=== PATIENT | female | born 1975 | race Native Hawaiian/Other Pacific Islander ===

== ENCOUNTER 2023-12-06 15:01 | Outpatient (OUT) | payer SELFPAY ==
--- NOTE | 2023-12-06 | XR_ITS ---
The [address] [address] Patient Name: MORENA VILLASENOR MRN: [id number] date: 1975 Sex: F Assigned Patient Location: Current Patient Location: Accession/Order Number: [id number] Exam Date: 12/06/2023 15:03 Report Date: 12/08/2023 06:40 At the request of: KARENA MAY Procedure: XR ankle LT min 3V PROCEDURE: XR ankle LT min 3V HISTORY: LEFT ANKLE PAIN COMPARISON: None. FINDINGS: BONES:Moderate size degenerative enthesophyte at Achilles tendon insertion into the calcaneus. No fracture, dislocation, or joint space irregularity. SOFT TISSUES:No visible soft tissue swelling. EFFUSION:None visible. OTHER: Negative. XR/XR ankle LT min 3V IMPRESSION: 1. No acute bone abnormality or significant degenerative joint disease. Electronically authenticated by: RHEA LILLY Date: 12/08/2023 06:40
== END 2023-12-06 15:02 | disposition home or self-care (01) ==
LOC: EC 15:01
PROVIDERS: Visit Provider Podiatrist Foot & Ankle Surgery
DX: M25.572 Pain in left ankle and joints of left foot (principal)
CPT/HCPCS: 73610

== ENCOUNTER 2023-12-20 08:35 | Outpatient (OUT) | payer BC, SELFPAY ==
--- NOTE | 2023-12-20 08:36 | VEIN_ITS ---
The [address] [address] Patient Name: MORENA VILLASENOR MRN: [id number] date: 1975 Sex: F Assigned Patient Location: Current Patient Location: Accession/Order Number: [id number] Exam Date: 12/20/2023 08:36 Report Date: 12/20/2023 11:00 At the request of: MARINE GOODWIN Procedure: VC SEGMENTAL PRESSURES EXAM: VC SEGMENTAL PRESSURES HISTORY: R09.89 Hyperlipidemia. Smoking. COMPARISON: None. TECHNIQUE: Resting ABIs and segmental limb pressures FINDINGS: Right resting MOSES 1.2. Left resting MOSES 1.24. Toe-brachial indices are normal. No pressure gradients were demonstrated. VEIN/VC SEGMENTAL PRESSURES IMPRESSION: Normal resting ABIs. No pressure gradients. Normal toe-brachial indices. Electronically authenticated by: Naida SHAIKH Date: 12/20/2023 11:00
--- OUTSIDE RECORDS SUMMARY | 2023-12-20 08:39 | XMS_ITS | CCD ---
Author Organization [facility] Care Team Providers Care Flow Floor Attendant Name Role Phone GAYLE ANDERSON Primary Care Unavailable Chago Jaramillo Admitting Unavailable Chago Jaramillo Attending Unavailable Gayle Anderson Primary Care Provider Robert Evans Primary Care Provider [phone] Robert Evans MD Primary Care Provider BROOKE WALLIS Referring Unavailable BACKROBERT Primary Care Unavailable BROOKE WALLIS Referring Unavailable BACKROBERT Primary Care Unavailable BACKROBERT Primary Care Unavailable RENEE KHOURY Referring Unavailabl e RENEE KHOURY Attending Unavailabl e RENEE KHOURY Attending Unavailabl e BACK, BILL Referring Unavailable RENEE KHOURY Referring Unavailabl e RENEE KHOURY Attending Unavailabl e RENEE KHOURY Referring Unavailabl e RENEE KHOURY Attending Unavailabl e Allergies Allergy Classification Reported Allergen(s) Allergy Type Date of Onset Reaction(s) Facility (1 source) Acetaminophen / HYDROcodone; Translations: [Vicodin] Drug Allergy [facility] Repository (1 source) lamoTRIgine; Translations: [LaMICtal] Drug Allergy [facility] Repository (1 source) lurasidone; Translations: [Latuda] Drug Allergy [facility] Repository (5 sources) Acetaminophen / HYDROcodone Drug Allergy 06-28-2019 [place], [place] (5 sources) lamoTRIgine Drug Allergy 01-06-2017 [place], [place] (5 sources) lurasidone Drug Allergy 01-06-2017 [place], [place] (5 sources) Morphine Drug Allergy 01-04-2018 [place], [place] Medications Current Medications Medication Drug Class(es) Dates Sig (Normalized) Sig (Original) acetaminophen 325 mg oral tablet (5 sources) take 2 tablets by mouth every six hours as needed for pain acetaminophen (TYLENOL) 325 MG tablet Take 2 tablets by mouth every 6 hours as needed for Pain 0 Active [id number] actuat albuterol 0.09 mg/actuat metered dose inhaler (5 sources) beta2-Adrenergic Agonist Start: 09-07-2023 take 2 puff(s) by inhalation every four hours as needed for wheezing albuterol sulfate HFA (PROVENTIL HFA) 108 (90 Base) MCG/ACT inhaler Indications: Mild intermittent asthma without complication Inhale 2 puffs into the lungs every 4 hours as needed for Wheezing 1 each 5 09/07/2023 Active Start: 08-01-2018 take 2 puff(s) by in halation every six hours as needed for wheezing albuterol sulfate HFA (PROVENTIL HFA) 108 (90 Base) MCG/ACT inhaler Indications: Mild intermittent asthma without complication Inhale 2 puffs into the lungs every 6 hours as needed for Wheezing 1 Inhaler 3 08/01/2018 Active benzonatate 100 mg oral capsule (1 source) Non-narcotic Antitussive Start: 04-16-2020 End: 04-23-2020 take 1-2 capsules by mouth three times daily as needed for cough benzonatate (TESSALON) 100 MG capsule Take 1-2 capsules by mouth 3 times daily as needed for Cough 60 capsule 0 04/16/2020 04/23/2020 Active ibuprofen 600 mg oral tablet (4 sources) Nonsteroidal Anti-inflammatory Drug Start: 06-28-2019 take 1 tablet by mouth every six hours as needed for pain ibuprofen (IBU) 600 MG tablet Take 1 tablet by mouth every 6 hours as needed for Pain 30 tablet 1 06/28/2019 Active take 3 tablets by mo uth every six hours as needed for pain ibuprofen (ADVIL;MOTRIN) 200 MG tablet T suzanne 600 mg by mouth every 6 hours as needed for Pain 0 Active ketoconazole 20 mg/ml topical cream (1 source) Azole Antifungal Start: 09-07-2023 ketoconazole (NIZORAL) 2 % cream Indications: Intertrigo Apply to the affected area 2 times a day for 2 weeks. 60 g 1 09/07/2023 Active naproxen sodium 220 mg oral tablet (4 sources) Nonsteroidal Anti-inflammatory Drug naproxen sodium (ALEVE) 220 MG tablet Take 550 mg by mouth 2 times daily (with meals) 0 Active omeprazole 40 mg delayed release oral capsule (5 sources) Proton Pump Inhibitor Start: 09-07-2023 take 1 capsule by mouth once daily omeprazole (PRILOSEC) 40 MG delayed release capsule Indications: Gastroesophageal reflux disease without esophagitis Take 1 capsule by mouth daily 30 capsule 5 09/07/2023 Active Start: 12-31-2019 take 1 capsule by mo ut once daily omeprazole (PRILOSEC) 40 MG delayed release capsule Indications: Gastroesophageal reflux disease without esophagitis Take 1 capsule by mouth daily 30 capsule 11 12/31/2019 Active Start: 04-02-2019 take 1 capsule by mo ut once daily omeprazole (PRILOSEC) 40 MG delayed release capsule Take 1 capsule by mouth daily 30 capsule 5 04/02/2019 Active zolpidem tartrate 10 mg oral tablet (2 sources) gamma-Aminobutyric Acid-ergic Agonist Start: 09-07-2023 End: 01-05-2024 take 1 tablet by mouth once daily as needed for sleep zolpidem (AMBIEN) 10 MG tablet Indications: Chronic insomnia Take 1 tablet by mouth nightly as needed for Sleep for up to 120 days. for sleep Max Daily Amount: 10 mg 30 tablet 3 09/07/2023 01/05/2024 Active Start: 03-26-2020 zolpidem (AMBI EN) 10 MG tablet Problems Active Problems Problem Classification Problem Date Documented Date Episodic/Chronic Asthma (2 sources) Mild intermittent asthma; Translations: [Mild intermittent asthma, uncomplicated] Onset: 02-01-2022 02-01-2022 Chronic Esophageal disorders (5 sources) Gastroesophageal reflux disease without esophagitis; Translations: [Gastro-esophageal reflux disease without esophagitis] Onset: 01-04-2018 01-04-2018 Chronic Immunizations and screening for infectious disease (1 source) Contact with and (suspected) exposure to other viral communicable diseases; Translations: [Suspected COVID-19 virus infection] Episodic Miscellaneous mental health disorders (1 source) Chronic insomnia; Translations: [Psychophysiologic insomnia] Onset: 02-01-2022 02-01-2022 Chronic Other connective tissue disease (1 source) Pain in left foot; Translations: [Pain in left foot] Onset: 11-18-2023 Episodic Other connective tissue disease (2 sources) Left achilles tendonitis; Translations: [Achilles tendinitis of left lower extremity] Other screening for suspected conditions (not mental disorders or infectious disease) (6 sources) Breast neoplasm screening status; Translations: [Encounter for screening mammogram for malignant neoplasm of breast] Onset: 09-08-2023 09-08-2023 Episodic Substance-related disorders (3 sources) Smoker; Translations: [Nicotine dependence, unspecified, uncomplicated] Onset: 12-31-2019 12-31-2019 Chronic Unclassified (2 sources) Patient encounter status; Translations: [Encounter for screening for HIV] Past or Other Problems Problem Classification Problem Date Documented Da te Episodic/Chronic Heart valve disorders (1 source) Systolic murmur; Translations: [Cardiac murmur, unspecified] Onset: 07-21-2021 07-21-2021 Episodic Results Test Name Value Interpretation Reference Range Facil ity MRI ANKLE LEFT WO CONTRASTon 11-23-2023 MRI ANKLE LEFT WO CONTRAST HISTORY: Chronic left ankle pain becoming worse over the past 9 months. Evaluate for possible stress fracture of the calcaneus. MRI ANKLE LEFT WO CONTRAST: 11/18/2023 9:38 AM EDT COMPARISON: Radiographs left foot 06/28/2019 and MRI left ankle 07/26/2019. TECHNIQUE: Multiplanar, multisequence MRI images of the ankle were obtained without contrast. FINDINGS: LIGAMENTS: The anterior talofibular ligament is again not clearly visualized. There is a spur again seen arising from the anteroinferior aspect of the lateral malleolus in this region. The calcaneofibular ligament, posterior talofibular ligament, and distal tibiofibular ligaments appear within normal limits. The deltoid ligament complex appears within normal limits. TENDONS: There is a similar appearance of mild tendinopathy of the Achilles tendon at its insertion on the calcaneus. There is a large enthesophyte again seen at the insertion of the Achilles tendon on the calcaneus. The other tendons of the ankle appear within normal limits. SINUS TARSI AND TARSAL TUNNEL: No space-occupying mass is seen in the tarsal tunnel or the sinus tarsi. BONES AND JOINTS: The bone marrow signal intensity is age appropriate. There appears to be mild cartilage thinning along the anterior aspect of the tibiotalar joint there is a small amount of fluid within a joint recess posterior to the tibiotalar joint and posterior to the flexor hallucis longus tendon. There is a linear 6 mm low signal intensity filling defect in this region corresponding to a linear ossific focus seen in this region on the prior radiographs. The posterior subtalar joint. No unstable osteochondral defect of the tibiotalar joint is seen. There are mild degenerative changes again seen at the articulation of the navicular with the medial cuneiform bone with mild adjacent subchondral bone marrow edema in the medial cuneiform. There also mild degenerative changes again seen at the articulation of the cuboid with the lateral cuneiform bone with mild adjacent subchondral bone marrow edema seen. There are mild degenerative changes again seen of the dorsal aspect of the second tarsometatarsal joint. No bone marrow edema-like signal is seen within the calcaneus or the remainder ankle. PLANTAR FASCIA: There is no abnormal thickening or abnormal signal intensity of the plantar fascia and there is no surrounding soft tissue edema to suggest plantar fasciitis. SOFT TISSUES: No significant soft tissue swelling is seen. IMPRESSION: 1. There is no MRI evidence of a stress reaction or stress fracture of the calcaneus or the remainder of the ankle. 2. There are mild degenerative changes of the tibiotalar joint and there is a linear 6 mm filling defect within fluid within a joint recess posterior to the tibiotalar joint compatible with a chronic loose body displaced into this region. 3. Stable appearance of mild tendinopathy of the Achilles tendon at its insertion on the calcaneus with a large calcaneal enthesophyte again seen in this region. 4. Remote grade 3 sprain of the anterior talofibular ligament. No acute ligament injury is seen. 5. There are mild degenerative changes again seen of the midfoot. Interpreted by: Nik Plaza MD Signed by: iNk Plaza MD 11/23/23 Final result Normal [facility] GEMINI DIGITAL SCREEN HENRY [place] 09-13-2023 [facility] GEMINI DIGITAL SCREEN BILATERAL HISTORY: Screening. TECHNIQUE: Bilateral digital screening mammogram with CAD. Digital breast tomosynthesis imaging. FINDINGS: Two views of each breast show scattered areas of fibroglandular density. BREAST DENSITY CODE: S Scattered No prior for comparison. Suspicious calcifications: None. Suspicious mass: None. (If skin markers were applied, circles represent skin lesions and linear markers represent scars.) IMPRESSION: OVERALL ASSESSMENT: BIRADS: 1 - Negative, no evidence of malignancy. Normal interval followup in 12 months. OVERALL ASSESSMENT- NEGATIVE A letter of notification will be sent to the patient regarding the results. Interpreted by: Adam Stephens Jr., MD Signed by: Adam Stephens Jr., MD 09/13/23 Final result Normal [facility] CBC with Diffon 09-08-2023 Abs. Basophil 0.03 k/uL Normal 0.00-0.20 [facility] Comment on above: Performed By: #### C DP, CP, TSH #### [facility] [address] [place] [address] ( Senior Analytic Consultant: Alfonzo Swanson MD #### LIPR #### [place] [id number] ( Senior Analytic Consultant: Woody Terrell MD Abs.Imm.Granulocyte 0.02 k/uL Normal 0.00-0.30 [facility] Comment on above: Performed By: #### C DP, CP, TSH #### [facility] [address] [place] [phone] ( Senior Analytic Consultant: Alfonzo Swanson MD #### LIPR #### [address] [phone] Senior Analytic Consultant: Woody Terrell MD Abs.Neutrophil (Seg) 4.76 k/uL Normal 2.5-7.0 [facility] Comment on above: Performed By: #### C DP, CP, TSH #### [facility] [address] [place] [phone] ( Senior Analytic Consultant: Alfonzo Swanson MD #### LIPR #### [place] [address] Senior Analytic Consultant: Woody Terrell MD Basophils/100 WBC (Bld) 0 % Normal 0-2 [facility] Comment on above: Performed By: #### C DP, CP, TSH #### [facility] [address] [place] [address] Senior Analytic Consultant: Alfonzo Swanson MD #### LIPR #### [place] [address] [place], [place] [phone] Senior Analytic Consultant: Woody Terrell MD Eosinophils (Bld) [#/Vol] 0.38 10*3/uL Normal 0.00-0.40 [facility] Comment on above: Performed By: #### C DP, CP, TSH #### [facility] [address] [place] [address] Senior Analytic Consultant: Alfonzo Swanson MD #### LIPR #### [address] [phone] Senior Analytic Consultant: Woody Terrell MD Eosinophils/100 WBC (Bld) 5 % Normal 0-5 [facility] Comment on above: Performed By: #### C DP, CP, TSH #### [facility] [address] [place] [address] Senior Analytic Consultant: Alfonzo Swanson MD #### LIPR #### [address] [phone] Senior Analytic Consultant: Woody Terrell MD Erythrocyte distribution width (RBC) [Ratio] 12.8 % Normal 12.1-15.2 [facility] Comment on above: Performed By: #### C DP, CP, TSH #### [facility] [address] [place], [place] [phone] Senior Analytic Consultant: Alfonzo Swanson MD #### LIPR #### [address] [phone] Senior Analytic Consultant: Woody Terrell MD Hematocrit (Bld) [Volume fraction] 44.9 % Normal 36.0-46.0 [facility] Comment on above: Performed By: #### C DP, CP, TSH #### [facility] [address] [place], [place] [phone] Senior Analytic Consultant: Alfonzo Swanson MD #### LIPR #### [place] [address] [place], [place] [phone] Senior Analytic Consultant: Woody Terrell MD Hemoglobin (Bld) [Mass/Vol] 15.8 g/dL Normal 12.0-16.0 [facility] Comment on above: Performed By: #### C DP, CP, TSH #### [facility] [address] [place] [address] Senior Analytic Consultant: Alfonzo Swanson MD #### LIPR #### [place] [address] [place], [place] [phone] Senior Analytic Consultant: Woody Terrell MD Immature granulocytes/100 WBC (Bld) 0 % Normal 0-5 [facility] Comment on above: Performed By: #### C DP, CP, TSH #### [facility] [address] [place] [address] Senior Analytic Consultant: Alfonzo Swanson MD #### LIPR #### [address] [phone] Senior Analytic Consultant: Woody Terrell MD Lymphocytes (Bld) [#/Vol] 2.86 10*3/uL Normal 1.00-4.80 [facility] Comment on above: Performed By: #### C DP, CP, TSH #### [facility] [address] [place] [address] Senior Analytic Consultant: Alfonzo Swanson MD #### LIPR #### [address] [phone] Senior Analytic Consultant: Woody Terrell MD Lymphocytes/100 WBC (Bld) 34 % Normal 15-40 [facility] Comment on above: Performed By: #### C DP, CP, TSH #### [facility] [address] [place] [address] Senior Analytic Consultant: Alfonzo Swanson MD #### LIPR #### [place] [address] [place] [address] Senior Analytic Consultant: Woody Terrell MD MCH (RBC) [Entitic mass] 30.2 pg Normal 26.0-34.0 [facility] Comment on above: Performed By: #### C DP, CP, TSH #### [facility] [address] [place] [address] Senior Analytic Consultant: Alfonzo Swanson MD #### LIPR #### [place] [phone] Senior Analytic Consultant: Woody Terrell MD MCHC (RBC) [Mass/Vol] 35.2 g/dL Normal 31.0-37.0 [facility] Comment on above: Performed By: #### C LYNDSAY CP, TSH #### [facility] [address] [place] [address] Senior Analytic Consultant: Alfonzo Swanson MD #### LIPR #### [place] [phone] Senior Analytic Consultant: Woody Terrell MD MCV (RBC) [Entitic vol] 85.7 fL Normal 80.0-100.0 [facility] Comment on above: Performed By: #### C DP, CP, TSH #### [facility] [address] [place] [address] Senior Analytic Consultant: Alfonzo Swanson MD #### LIPR #### [place] [phone] Senior Analytic Consultant: Woody Terrell MD Monocytes (Bld) [#/Vol] 0.40 10*3/uL Normal 0.00-1.00 [facility] Comment on above: Performed By: #### C DP, CP, TSH #### [facility] [address] [place], [place] [phone] Senior Analytic Consultant: Alfonzo Swanson MD #### LIPR #### [place] [address] [place], [place] [phone] Senior Analytic Consultant: Woody Terrell MD Monocytes/100 WBC (Bld) 5 % Normal 4-8 [facility] Comment on above: Performed By: #### C DP, CP, TSH #### [facility] [address] [place], [place] [phone] Senior Analytic Consultant: Alfonzo Swanson MD #### LIPR #### [address] [phone] Senior Analytic Consultant: Woody Terrell MD Neutrophil (Seg) 56 % Normal 47-75 [facility] Comment on above: Performed By: #### C DP, CP, TSH #### [facility] [address] [place] [phone] Senior Analytic Consultant: Alfonzo Swanson MD #### LIPR #### [address] [phone] Senior Analytic Consultant: Woody Terrell MD Platelet mean volume (Bld) [Entitic vol] 10.7 fL Normal 6.0-12.0 [facility] Comment on above: Performed By: #### C DP, CP, TSH #### [facility] [address] [place], [place] [phone] Senior Analytic Consultant: Alfonzo Swanson MD #### LIPR #### [address] [phone] Senior Analytic Consultant: Woody Terrell MD Platelets (Bld) [#/Vol] 274 10*3/uL Normal 140-450 [facility] Comment on above: Performed By: #### C DP, CP, TSH #### [facility] [address] [place] [phone] Senior Analytic Consultant: Alfonzo Swanson MD #### LIPR #### [place] [address] [place], [place] [phone] Senior Analytic Consultant: Woody Terrell MD RBC (Bld) [#/Vol] 5.24 10*6/uL High 4.00-5.20 [facility] Comment on above: Performed By: #### C DP, CP, TSH #### [facility] [address] [place] [address] Senior Analytic Consultant: Alfonzo Swanson MD #### LIPR #### [address] [phone] Senior Analytic Consultant: Woody Terrell MD WBC (Bld) [#/Vol] 8.5 10*3/uL Normal 3.5-11.0 [facility] Comment on above: Performed By: #### C LYNDSAY CP, TSH #### [facility] [address] [place] [phone] ( Senior Analytic Consultant: Alfonzo Swanson MD #### LIPR #### [place] [address] Senior Analytic Consultant: Woody Terrell MD Comp Metabolic Profon 2023 Albumin [Mass/Vol] 4.2 g/dL Normal 3.5-5.2 [facility] Comment on above: Performed By: #### C DP CP, TSH #### [facility] [address] [place] [address] Senior Analytic Consultant: Alfonzo Swanson MD #### LIPR #### [address] [address] Senior Analytic Consultant: Woody Terrell MD Alkaline Phos 71 U/L Normal 35-104 [facility] Comment on above: Performed By: #### C DP, CP, TSH #### [facility] [address] [place], [place] [phone] Senior Analytic Consultant: Alfonzo Swanson MD #### LIPR #### [facility] [address] [place], [place] [phone] Senior Analytic Consultant: Woody Terrell MD ALT [Catalytic activity/Vol] 27 U/L Normal 5-33 [facility] Comment on above: Performed By: #### C DP, CP, TSH #### [facility] [address] [place], [place] [phone] Senior Analytic Consultant: Alfonzo Swanson MD #### LIPR #### [place] [address] [place], [place] [phone] Senior Analytic Consultant: Woody Terrell MD Anion gap [Moles/Vol] 14 mmol/L Normal 9-17 [facility] Comment on above: Performed By: #### C DP, CP, TSH #### [facility] [address] [place], [place] [phone] Senior Analytic Consultant: Alfonzo Swanson MD #### LIPR #### [address] [phone] Senior Analytic Consultant: Woody Terrell MD AST [Catalytic activity/Vol] 21 U/L Normal <32 [facility] Comment on above: Performed By: #### C DP, CP, TSH #### [facility] [address] [place], [place] [phone] Senior Analytic Consultant: Alfonzo Swanson MD #### LIPR #### [facility] [address] [place] [address] [phone] Senior Analytic Consultant: Woody Terrell MD Bilirubin [Mass/Vol] 0.3 mg/dL Normal 0.3-1.2 [facility] Comment on above: Performed By: #### C DP, CP, TSH #### [facility] [address] [place], [place] [phone] Senior Analytic Consultant: Alfonzo Swanson MD #### LIPR #### [facility] [address] [place] [address] Senior Analytic Consultant: Woody Terrell MD BUN/CRE Ratio 14 Normal 9-20 [facility] Comment on above: Performed By: #### C DP, CP, TSH #### [facility] [address] [place] [address] Senior Analytic Consultant: Alfonzo Swanson MD #### LIPR #### [facility] [address] [place] [phone] Senior Analytic Consultant: Woody Terrell MD Calcium [Mass/Vol] 9.1 mg/dL Normal 8.6-10.4 [facility] Comment on above: Performed By: #### C DP, CP, TSH #### [facility] [address] [place] [address] Senior Analytic Consultant: Alfonzo Swanson MD #### LIPR #### [facility] [address] [place] [phone] Senior Analytic Consultant: Woody Terrell MD Chloride [Moles/Vol] 103 mmol/L Normal 98-107 [facility] Comment on above: Performed By: #### C DP, CP, TSH #### [facility] [address] [place] [address] Senior Analytic Consultant: Alfonzo Swanson MD #### LIPR #### [facility] [address] [place] [address] Senior Analytic Consultant: Woody Terrell MD CO2 [Moles/Vol] 20 mmol/L Normal 20-31 [facility] Comment on above: Performed By: #### C DP, CP, TSH #### [facility] [address] [place] [address] Senior Analytic Consultant: Alfonzo Swanson MD #### LIPR #### [facility] [address] [place] [address] Senior Analytic Consultant: Woody Terrell MD Creatinine [Mass/Vol] 0.8 mg/dL Normal 0.5-0.9 [facility] Comment on above: Performed By: #### C TEJAL UMANA, TSH #### [facility] [address] [place], [place] [phone] Senior Analytic Consultant: Alfonzo Swanson MD #### LIPR #### [place] [address] [place], [place] [phone] Senior Analytic Consultant: Woody Terrell MD GFR/1.73 sq M.predicted among non-blacks MDRD (S/P/Bld) [Vol rate/Area] mL/min/{1.73_m2} Normal >60 [facility] Comment on above: Result Comment: These results are not intended for use in patients <18 years of age. eGFR results are calculated without a race factor using the 2020 CKD-EPI equation. Careful clinical correlation is recommended, particularly when comparing to results calculated using previous equations. The CKD-EPI equation is less accurate in patients with extremes of muscle mass, extra-renal metabolism of creatine, excessive creatine ingestion, or following therapy that affects renal tubular secretion. Performed By: #### C TEJAL UMANA, TSH #### [facility] [address] [place], [place] [phone] Senior Analytic Consultant: Alfonzo Swanson MD #### LIPR #### [place] [address] [place], [place] [phone] Senior Analytic Consultant: Woody Terrell MD Glucose [Mass/Vol] 102 mg/dL High 70-99 [facility] Comment on above: Performed By: #### C TEJAL UMANA, TSH #### [facility] [address] [place], [place] [phone] Senior Analytic Consultant: Alfonzo Swanson MD #### LIPR #### [facility] [address] [place] [address] [phone] Senior Analytic Consultant: Woody Terrell MD Potassium [Moles/Vol] 3.8 mmol/L Normal 3.7-5.3 [facility] Comment on above: Performed By: #### C DP, CP, TSH #### [facility] [address] [place], [place] [phone] Senior Analytic Consultant: Alfonzo Swanson MD #### LIPR #### [address] [address] Senior Analytic Consultant: Woody Terrell MD Protein [Mass/Vol] 7.0 g/dL Normal 6.4-8.3 [facility] Comment on above: Performed By: #### C DP, CP, TSH #### [facility] [address] [place], [place] [phone] Senior Analytic Consultant: Alfonzo Swanson MD #### LIPR #### [address] [phone] Senior Analytic Consultant: Woody Terrell MD Sodium [Moles/Vol] 137 mmol/L Normal 135-144 [facility] Comment on above: Performed By: #### C DP, CP, TSH #### [facility] [address] [place], [place] [phone] Senior Analytic Consultant: Alfonzo Swanson MD #### LIPR #### [address] [address] Senior Analytic Consultant: Woody Terrell MD Urea nitrogen [Mass/Vol] 11 mg/dL Normal 6-20 [facility] Comment on above: Performed By: #### C DP, CP, TSH #### [facility] [address] [place], [place] [id number] Senior Analytic Consultant: Alfonzo Swanson MD #### LIPR #### [address] [address] Senior Analytic Consultant: Woody Terrell MD Lipid Profileon 09-08-2023 Cholesterol [Mass/Vol] 277 mg/dL High 0-199 [facility] Comment on above: Result Comment: Cholesterol Guidelines: <200 Desirable 200-240 Borderline >240 Undesirable Performed By: #### C DP, CP, TSH #### [facility] [address] [place] [address] Senior Analytic Consultant: Alfonzo Swanson MD #### LIPR #### [facility] [address] [place] [id number] Senior Analytic Consultant: Woody Terrell MD Cholesterol in HDL [Mass/Vol] 35 mg/dL Low >40 [facility] Comment on above: Result Comment: HDL Guidelines: <40 Undesirable 40-59 Borderline >59 Desirable Performed By: #### C DP, CP, TSH #### [facility] [address] [place], [place] [id number] Senior Analytic Consultant: Alfonzo Swanson MD #### LIPR #### [address] [address] Senior Analytic Consultant: Woody Terrell MD Cholesterol in LDL [Mass/Vol] 169 mg/dL High 0-100 [facility] Comment on above: Result Comment: LDL Guidelines: <100 Desirable 100-129 Near to/above Desirable 130-159 Borderline >159 Undesirable Direct (measured) LDL and calculated LDL are not interchangeable tests. Performed By: #### C DP, CP, TSH #### [facility] [address] [place] [address] Senior Analytic Consultant: Alfonzo Swanson MD #### LIPR #### [facility] [address] [place] [id number] Senior Analytic Consultant: Woody Terrell MD Cholesterol in VLDL [Mass/Vol] 72 mg/dL Normal [facility] Comment on above: Performed By: #### C DP, CP, TSH #### [facility] [address] [place] [address] Senior Analytic Consultant: Alfonzo Swanson MD #### LIPR #### [facility] [employer] [address] [place] [id number] Senior Analytic Consultant: Woody Terrell MD Cholesterol.total/Ch olesterol in HDL [Mass ratio] 8.0 {ratio} Normal [facility] Comment on above: Performed By: #### C TEJAL UMANA, TSH #### [facility] [address] [place], [place] [phone] Senior Analytic Consultant: Alfonzo Swanson MD #### LIPR #### [address] [phone] Senior Analytic Consultant: Woody Terrell MD Triglyceride [Mass/Vol] 362 mg/dL High <150 [facility] Comment on above: Result Comment: Triglyceride Guidelines: <150 Desirable 150-199 Borderline 200-499 High >499 Very high Based on AHA Guidelines for fasting triglyceride, January 2012. Performed By: #### C TEJAL UMANA, TSH #### [facility] [address] [place], [place] [id number] Senior Analytic Consultant: Alfonzo Swanson MD #### LIPR #### [address] [place], [place] [phone] Senior Analytic Consultant: Woody Terrell MD Thyroid Stim. Horm.on 2023 Thyroid Stim. Horm. 2.41 uIU/mL Normal 0.30-5.00 [facility] Comment on above: Performed By: #### C TEJAL UMANA, TSH #### [facility] [address] [place], [place] [phone] Senior Analytic Consultant: Alfonzo Swanson MD #### LIPR #### [address] [place], [place] [phone] Senior Analytic Consultant: Woody Terrell MD Comprehensive Metabolic Pane ramona 02-09-2020 Albumin [Mass/Vol] 5 g/dL 3.5 - 5.2 g/dL [place], [place] Albumin/Globulin [Mass ratio] NOT REPORTED [place], [place] ALP [Catalytic activity/Vol] 64 U/L 35 - 104 U/L [place] ALT [Catalytic activity/Vol] 40 U/L High 5 - 33 U/L [place] Anion gap [Moles/Vol] 11 mmol/L 9 - 17 mmol/L [place] AST [Catalytic activity/Vol] 29 U/L <32 [place] Bilirubin Ql (U) 0.46 mg/dL 0.3 - 1.2 mg/dL [place] Bun/Cre Ratio 14 [place], [place] Calcium [Mass/Vol] 9.9 mg/dL 8.6 - 10.4 mg/dL [place] Chloride [Moles/Vol] 102 mmol/L 98 - 107 mmol/L [place] CO2 [Moles/Vol] 24 mmol/L 20 - 31 mmol/L [place] Creatinine [Mass/Vol] 1.03 mg/dL High 0.5 - 0.9 mg/dL [place] GFR >60 >60 mL/min [place] GFR Non- 59 mL/min Low >60 [place] GFR/1.73 sq M predicted among non-blacks MDRD (S/P/Bld) [Vol rate/Area] NOT REPORTED [place] GFR/1.73 sq M predicted among non-blacks MDRD (S/P/Bld) [Vol rate/Area] [place] Comment on above: Average GFR for 40-4 9 years old: 99 mL/min/1.73sq m Chronic Kidney Disease: <60 mL/min/1.73sq m Kidney failure: <15 mL/min/1.73sq m eGFR calculated using average adult body mass. Additional eGFR calculator available at: http://[email or web address]_A[employer]/multiple_crcl_2012.htm Glucose [Mass/Vol] 106 mg/dL High 70 - 99 mg/dL [place] Interpretation and review of laboratory results Abnormal [place] Potassium [Moles/Vol] 4.3 mmol/L 3.7 - 5.3 mmol/L [place] Protein [Mass/Vol] 7.8 g/dL 6.4 - 8.3 g/dL [place] Sodium [Moles/Vol] 137 mmol/L 135 - 144 mmol/L [place] Urea nitrogen [Mass/Vol] 14 mg/dL 6 - 20 mg/dL [place] HIV Screenon 02-09-2020 HIV Ag/Ab NONREACTIVE NONREACTIVE [place], [place] Comment on above: No laboratory eviden ce of HIV infection. If acute HIV infection is suspected, consider testing for HIV-1 RNA. Lipid Panelon 02-09-2020 Cholesterol [Mass/Vol] 238 mg/dL High <200 [place] Comment on above: Cholesterol Guidelines: <200 Desirable 200-240 Borderline >240 Undesirable Cholesterol in HDL [Mass/Vol] 28 mg/dL Low >40 [place] Comment on above: HDL Guidelines: <40 Undesirable 40-59 Borderline >59 Desirable Cholesterol in LDL [Mass/Vol] 146 mg/dL High 0 - 130 mg/dL [place] Comment on above: LDL Guidelines: <100 Desirable 100-129 Near to/above Desirable 130-159 Borderline >159 Undesirable Direct (measured) LDL and calculated LDL are not interchangeable tests. Cholesterol in VLDL [Mass/Vol] NOT REPORTED High 1 - 30 mg/dL [place] Cholesterol.total/Ch olesterol in HDL [Mass ratio] 8.5 {ratio} High <5 [place] Interpretation and review of laboratory results Abnormal [place] Triglyceride [Mass/Vol] 322 mg/dL High <150 [place] Comment on above: Triglyceride Guidelines: <150 Desirable 150-199 Borderline 200-499 High >499 Very high Based on AHA Guidelines for fasting triglyceride, January 2012. Patient Fasting?on 0 Patient Fasting? YES [place] MRI ANKLE LEFT WO CONTRASTon 07-26-2019 1. Mild insertional tendinopathy of the distal 1 cm of the Achilles tendon. Associated 9 mm posterior calcaneal enthesophyte/spur. 2. Tendinopathy and possible fraying of the peroneus brevis tendon, which begins at the level of the distalmost fibula, and extends distally, for approximately 3 cm in length. 3. Mild degenerative subchondral bone edema on both sides of the proximal lateral cuneiform-cuboid joint. 4. No sign of acute fracture or osteochondral lesion. 5. Small posterior facet subtalar joint effusion. [place], [place] CLINICAL HISTORY: Left ankle Achilles tendinopathy (M 76.62). MRI LEFT ANKLE WITHOUT CONTRAST: TECHNIQUE: Sagittal T1, STIR, axial PD, T2, and coronal PD fat-saturated images were obtained through the left ankle. COMPARISON: Radiographs of 06/28/2019. FINDINGS: There is mild insertional tendinopathy of the distal 1 cm of the Achilles tendon. There is an associated 9 mm posterior calcaneal enthesophyte/spur. The plantar fascia is intact. There is tendinopathy and possible fraying of the peroneus brevis tendon, which begins at the level of the distalmost fibula, and extends distally, for approximately 3 cm in length. The tendons appear otherwise intact. A small 3 mm benign bone island is incidentally noted in the posteroinferior medullary space of the talus, with hypointense signal on all imaging sequences. Mild degenerative subchondral bone edema is noted on both sides of the proximal lateral cuneiform-cuboid joint. The bone marrow is otherwise normal in signal, without signs of acute fracture. No osteochondral lesion of the talar dome or tibial plafond. A small posterior facet subtalar joint effusion is present. The lateral and medial ankle ligaments appear intact. [place], [place] Mario, [facility] Incoming Radiant Results From [facility] - 07/26/2019 11:47 AM EDT CLINICAL HISTORY: Left ankle Achilles tendinopathy (M 76.62). MRI LEFT ANKLE WITHOUT CONTRAST: TECHNIQUE: Sagittal T1, STIR, axial PD, T2, and coronal PD fat-saturated images were obtained through the left ankle. COMPARISON: Radiographs of 06/28/2019. FINDINGS: There is mild insertional tendinopathy of the distal 1 cm of the Achilles tendon. There is an associated 9 mm posterior calcaneal enthesophyte/spur. The plantar fascia is intact. There is tendinopathy and possible fraying of the peroneus brevis tendon, which begins at the level of the distalmost fibula, and extends distally, for approximately 3 cm in length. The tendons appear otherwise intact. A small 3 mm benign bone island is incidentally noted in the posteroinferior medullary space of the talus, with hypointense signal on all imaging sequences. Mild degenerative subchondral bone edema is noted on both sides of the proximal lateral cuneiform-cuboid joint. The bone marrow is otherwise normal in signal, without signs of acute fracture. No osteochondral lesion of the talar dome or tibial plafond. A small posterior facet subtalar joint effusion is present. The lateral and medial ankle ligaments appear intact. IMPRESSION: 1. Mild insertional tendinopathy of the distal 1 cm of the Achilles tendon. Associated 9 mm posterior calcaneal enthesophyte/spur. 2. Tendinopathy and possible fraying of the peroneus brevis tendon, which begins at the level of the distalmost fibula, and extends distally, for approximately 3 cm in length. 3. Mild degenerative subchondral bone edema on both sides of the proximal lateral cuneiform-cuboid joint. 4. No sign of acute fracture or osteochondral lesion. 5. Small posterior facet subtalar joint effusion. [place], [place] Coding Summary.on 05-16-2018 Coding Summary. CODING DATE: 05/16/2018 [facility] STATUS: Home ([facility]) PAYOR: Medicaid EAPG DESCRIPTION 0471 PLAIN FILM 0415 LEVEL II IMMUNIZATION 0674 CONTUSION, OPEN WOUND & OTHER TRAUMA TO SKIN & SUBCUTANEOUS TISSUE 0459 VACCINE ADMINISTRATION ADMIT DX: REASON FOR VISIT DX: S61.442A Puncture wound with foreign body of left hand, initial encounter FINAL DX: PRINCIPAL: S61.442A Puncture wound with foreign body of left hand, initial encounter SECONDARY: W45.8XXA Other foreign body or object entering through skin, initial encounter Z23 Encounter for immunization F17.210 Nicotine dependence, cigarettes, uncomplicated PYMT PROC EAPG STAT DESCRIPTION DOCTOR NAME DATE NOTE: The code number assigned matches the documented diagnosis and / or procedure in the patient's chart. However, the narrative phrase printed from the coding software may appear abbreviated, or result in slightly different terminology. Revised Coded By: Leilani Chow Revised Date Saved: 05/16/2018 11:47 am Normal [facility] ED Note-Physicianon 05-11-19 ED Note-Physician Basic Information Time Seen: Clint BAEZ, Chago ; Saurav ARREGUIN, Jovan Orlando 05/10/2018 17:39 Chief Complaint PT reports a 1/4 inch staple imbedded in the palm of left hand. Pt reports incident happened approx 15 mins ago. Bleeding controlled. Pt deneis any further complaints History of Present Illness 43-year-old white female presents emergency room with a portion of a staple stuck in her left palm over the ulnar aspect of the palm. She is in need of a tetanus. She is a smoker patient is not diabetic her PCP is Angel Anderson CNP. Patient denies any paresthesia distal to the injury. Patient is right-hand dominant. She was removing the staple from a piece of wood when her hand slipped and a stable stuck to her palm. Review of Systems All organ systems are reviewed. Pertinent positive and negative findings as mentioned in the HPI Physical Exam Vitals & Measurements T: 36.6 ?C (Oral) HR: 92(Peripheral) RR: 20 BP: 133/81 SpO2: 99% HT: 160 cm WT: 78 kg BMI: 30.47 General: Alert and oriented, No acute distress, Comfortable in room B Eye: Pupils are equal, round and reactive to light, Extraocular movements are intact. HENT: Normocephalic. Nose Patent, no discharge Neck: Supple, Non-tender Musculoskeletal: Normal range of motion, Normal strength. Superficial foreign body noted in the palm of the left hand near the ulnar crease Neurologic: Alert, Oriented, Normal sensory, Normal motor function. Cognition and Speech: Oriented, Speech clear and coherent. Psychiatric: Cooperative, Appropriate mood & affect. Integumentary: Warm, Dry, [place] Procedure Patient left hand was prepped and draped sterilely with the use of Betadine and sterile towels the palm was anesthetized along the length of the staple embedded under the skin. 1% lidocaine with epinephrine was used patient tolerated this well. Small portion of the staple was exiting the skin and this was grasped with hemostats and gently removed with no resistance. Assessment/Plan 1. Puncture wound of left hand with foreign body Staple removed Orders: amoxicillin-clavulana te, 1 tab(s), Tab, Oral, Once, Stop date 05/10/18 17:30:00 EST, STAT, Start date 05/10/18 17:30:00 EST Dressing Care/Change Suture Tray Set Up XR Hand 2 Views Left Medications Administered Given Lidocaine 1% with Epi 1:100,000 Injection, 10 mL, IntraDermal tetanus/diphtheria/pe rtussis, acel (Tdap) 5 units-2 units-15.5 mcg/0.5 mL IM Susp 0.5 mL, 0.5 mL, Intramuscular-Immuniz ation diphtheria/pertussis, acel/tetanus adult, Intramuscular-Immuniz ation Disposition Plan Patient Discharge Condition Stable improved Discharge Prescription List Prescriptions Augmentin 875 mg oral tablet, 1 tab(s), Oral, q12hr Follow-up With When Contact Information GAYLE ANDERSON In 3 days 05/13/2018 [place] [address]- Business (1) Additional Instructions: Call tomorrow for recheck appointment. Augmentin as prescribed to help prevent infection keep wound clean and dry may cleanse with peroxide and soap and water. Use hand as tolerated. Follow-up sooner for any concerns of infection fever or chills Patient Education Puncture Wound Attestation Dr Jaramillo has been informed about evaluation and treatment of patient during this visit. This report was transcribed using voice recognition software. Every effort was made to ensure accuracy, however, inadvertently computerized mail caller mistakes may be present. Patient was treated and evaluated by the physician medical library assistant. The attending physician was in the emergency department at all times and supervised care. The case was discussed with the attending physician and diagnostics were reviewed as needed Problem List/Past Medical History Ongoing Endometriosis Functional ovarian cysts Migraine Smoker Uterine fibroid Historical No qualifying data Procedure/Surgical History Robotic assisted hysterectomy and bilateral salpingectomy, removal of eroded mesh (09/10/2016), ablation, bladder sling, Carpal tunnel syndrome, Tubal ligation. Medications Inpatient Augmentin 875 mg-125 mg Tab, 1 tab(s), Oral, Once Home Augmentin 875 mg oral tablet, 1 tab(s), Oral, q12hr doxycycline monohydrate 100 mg oral capsule, 100 mg= 1 cap(s), Oral, BID ibuprofen 200 mg oral capsule, 400 mg= 2 cap(s), Oral, q6hr, PRN naproxen 500 mg oral tablet, 500 mg= 1 tab(s), Oral, BID Percocet 325 mg-5 mg Tab, 2 tab(s), Oral, q4hr, PRN sulfamethoxazole-trim ethoprim 800 mg-160 mg oral tablet, 1 tab(s), Oral, BID Ventolin HFA 90 mcg/inh Aerosol, 2 puff(s), Inhalation, QID, PRN Allergies Vicodin (Nausea and vomiting) LaMICtal (Rash) Latuda (Rash) Social History Alcohol - Denies Alcohol Use, 08/27/2016 Substance Abuse - Denies Substance Abuse, 08/27/2016 Tobacco 10 or more cigarettes (1/2 pack or more)/day in last 30 days Tobacco Use:. Cigarettes, 05/10/2018 Current Every Day Smoker, 09/03/2016 Lab Results No qualifying data available. Diagnostic Results XR Hand 2 Views Left * Preliminary * 05/10/18 17:50:21 NEGATIVE: FB completely removed No fracture, subluxation or other acute abnormality No foreign body Read By: Jovan Mg PA-C XR Hand 3+ Views Left * Preliminary * 05/10/18 17:35:38 POSITIVE: Metallic foreign body noted and soft tissue left ulnar palm Read By: Jovan Mg PA-C [facility] Comment on above: Result Comment: Elec tronically Signed By: Jovan Mg PA-C\.br\Date and Time Signed: 05/10/18 17:51 EST\.br\Electronically Co-Signed By: Chago Jaramillo MD\.br\Date and Time Co-Signed: 05/11/18 07:51 EST XR Hand 2 Views Lefton 05-11 XR Hand 2 Views Left Exam Date/Time: 05/10/2018 17:44 EST Reason for Exam: Other (please specify) Report IMPRESSION: NEGATIVE LEFT HAND. EXAM: XR Hand 2 Views Left DATE: 05/10/2018 5:35 PM CLINICAL HISTORY: Acute left hand pain Other (please specify) COMPARISONS: 05/20/2018 AT 0451 HOURS. FINDINGS: The previously noted radiopaque foreign body in the palmar soft tissues of the left wrist has been successfully removed. No residual radiopaque foreign object or debris. Bones intact. FINAL REPORT Dictated: 05/11/2018 9:43 am Jeff Sloan MD Signed (Electronic Signature): 05/11/2018 3:45 pm Signed by: Jeff Sloan MD Transcribed by: nette Technologist: BEBA Roca [facility] XR Hand 3+ Views Lefton 05-02 XR Hand 3+ Views Left Exam Date/Time: 05/10/2018 17:03 EST Reason for Exam: Other (please specify) Report IMPRESSION: POSITIVE FOR RADIOPAQUE FOREIGN BODY. EXAM: XR Hand 3+ Views Left DATE: 05/10/2018 4:52 PM CLINICAL HISTORY: Acute left hand pain Other (please specify) COMPARISONS: NONE AVAILABLE FINDINGS: There is 1.2 cm x 0.2 cm radiopaque foreign body in the palmar surfaces of the left wrist consistent with a staple. Bones intact. No acute fracture or other osseous abnormality. FINAL REPORT Dictated: 05/11/2018 9:42 am Jeff Sloan MD Signed (Electronic Signature): 05/11/2018 3:45 pm Signed by: Jeff Sloan MD Transcribed by: nette Technologist: BBEA Roca [facility] ED Clinical Summaryon 2018 ED Clinical Summary [address] [id number] ED Clinical Summary Person Information Name: BROOKE BISWAS [facility] Age: 43 Years : 1975 12:00 AM Sex: Female Language: Egyptian PCP: GAYLE ANDERSON CNP Marital Status: Phone: [phone] Visit Id: Visit Reason: Hand puncture wound; STAPLE IN L HAND Speciality: Acuity: 4 Enc Type: Emergency Med Service: Emergency Arrival: 05/10/2018 4:33 PM Discharge: 05/10/2018 6:00 PM LOS: 000 01:27 Checkin: 05/10/2018 4:33 PM Checkout: 05/10/2018 6:00 PM Dispo Type: Home (Routine DC) EVENTS: Event Name Event Status Request Date/Time Start Date/Time Complete Date/Time Arrive Complete 05/10/2018 4:33 PM 05/10/2018 4:33 PM 05/10/2018 4:33 PM Document Home Meds Request 05/10/2018 4:33 PM Triage Complete 05/10/2018 4:33 PM 05/10/2018 4:39 PM 05/10/2018 4:39 PM Workers Comp Request 05/10/2018 4:39 PM Bed Assign Complete 05/10/2018 4:39 PM 05/10/2018 4:39 PM 05/10/2018 4:[address] Exam Complete 05/10/2018 4:39 PM 05/10/2018 4:49 PM 05/10/2018 4:49 PM RN Exam Complete 05/10/2018 4:39 PM 05/10/2018 4:44 PM 05/10/2018 4:44 PM X-Ray Complete 05/10/2018 4:46 PM 05/10/2018 4:52 PM 05/10/2018 5:03 PM Registration Complete 05/10/2018 4:49 PM 05/10/2018 4:55 PM 05/10/2018 4:[address] Exam Complete 05/10/2018 4:49 PM 05/10/2018 4:49 PM 05/10/2018 4:49 PM Reg Complete Request 05/10/2018 4:55 PM Reg Bed Request Complete 05/10/2018 4:55 PM 05/10/2018 4:55 PM 05/10/2018 4:55 PM Wet Read Request 05/10/2018 5:03 PM Meds Admin Complete 05/10/2018 5:04 PM 05/10/2018 5:15 PM Patient Care Complete 05/10/2018 5:04 PM 05/10/2018 5:16 PM X-Ray Complete 05/10/2018 5:20 PM 05/10/2018 5:35 PM 05/10/2018 5:44 PM Meds Admin Complete 05/10/2018 5:31 PM 05/10/2018 5:51 PM Patient Care Request 05/10/2018 5:31 PM Discharge Complete 05/10/2018 5:34 PM 05/10/2018 6:01 PM 05/10/2018 6:[address] Exam Complete 05/10/2018 5:39 PM 05/10/2018 5:39 PM 05/10/2018 5:39 PM Registration Request 05/10/2018 5:[address] Exam Complete 05/10/2018 5:39 PM 05/10/2018 5:39 PM 05/10/2018 5:39 PM Transfer Complete 05/10/2018 6:01 PM 05/10/2018 6:01 PM 05/10/2018 6:01 PM ADDRESS: [address] [place] [id number] PHYS DOC NOTES: MEDICAL INFORMATION: Prescriptions Given: Prescription Display amoxicillin-clavulana te (Augmentin 875 mg oral tablet) = 1 tab(s), Oral, q12hr, X 7 day(s), # 14 tab(s), Refills(s) 0 PATIENT EDUCATION INFORMATION: Instructions: Puncture Wound Follow up: With: Address: When: GAYLE PETERSQUINTIN [place] [address] Business (1) In 3 days 05/13/2018 Comments: Call tomorrow for recheck appointment. Augmentin as prescribed to help prevent infection keep wound clean and dry may cleanse with peroxide and soap and water. Use hand as tolerated. Follow-up sooner for any concerns of infection fever or chills DIAGNOSIS: 1:Puncture wound of left hand with foreign body Normal [facility] ED Patient Education Noteon 05-10-2018 ED Patient Education Note Family Medicine Puncture Wound A puncture wound is an injury that extends through all layers of the skin and into the tissue beneath the skin (subcutaneous tissue). Puncture wounds become infected easily because germs often enter the body and go beneath the skin during the injury. Having a deep wound with a small entrance point makes it difficult for your caregiver to adequately clean the wound. This is especially true if you have stepped on a nail and it has passed through a dirty shoe or other situations where the wound is obviously contaminated. CAUSES Many puncture wounds involve glass, nails, splinters, fish hooks, or other objects that enter the skin (foreign bodies). A puncture wound may also be caused by a human bite or animal bite. DIAGNOSIS A puncture wound is usually diagnosed by your history and a physical exam. You may need to have an X-ray or an ultrasound to check for any foreign bodies still in the wound. TREATMENT ? Your caregiver will clean the wound as thoroughly as possible. Depending on the location of the wound, a bandage (dressing) may be applied. ? Your caregiver might prescribe antibiotic medicines. ? You may need a follow-up visit to check on your wound. Follow all instructions as directed by your caregiver. HOME CARE INSTRUCTIONS ? Change your dressing once per day, or as directed by your caregiver. If the dressing sticks, it may be removed by soaking the area in water. ? If your caregiver has given you follow-up instructions, it is very important that you return for a follow-up appointment. Not following up as directed could result in a chronic or permanent injury, pain, and disability. ? Only take [id number] or prescription medicines for pain, discomfort, or fever as directed by your caregiver. ? If you are given antibiotics, take them as directed. Finish them even if you start to feel better. You may need a tetanus shot if: ? You cannot remember when you had your last tetanus shot. ? You have never had a tetanus shot. If you got a tetanus shot, your arm may swell, get red, and feel warm to the touch. This is common and not a problem. If you need a tetanus shot and you choose not to have one, there is a rare chance of getting tetanus. Sickness from tetanus can be serious. You may need a rabies shot if an animal bite caused your puncture wound. SEEK MEDICAL CARE IF: ? You have redness, swelling, or increasing pain in the wound. ? You have red streaks going away from the wound. ? You notice a bad smell coming from the wound or dressing. ? You have yellowish-white fluid (pus) coming from the wound. ? You are treated with an antibiotic for infection, but the infection is not getting better. ? You notice something in the wound, such as rubber from your shoe, cloth, or another object. ? You have a fever. ? You have severe pain. ? You have difficulty breathing. ? You feel dizzy or faint. ? You cannot stop vomiting. ? You lose feeling, develop numbness, or cannot move a limb below the wound. ? Your symptoms worsen. MAKE SURE YOU: ? Understand these instructions. ? Will watch your condition. ? Will get help right away if you are not doing well or get worse. Document Released: 01/26/2006 Document Revised: 07/10/2012 Document Reviewed: 10/05/2011 ExitCare? Patient Information ?2015 [employer]. This information is not intended to replace advice given to you by your health care provider. Make sure you discuss any questions you have with your health care provider. Normal [facility] ED Patient Summaryon 019 ED Patient Summary [address] [address] Patient Discharge Instructions Person Information Name: BROOKE BISWAS Age: 43 Years Arrival Date: 05/10/2018 4:33 PM Discharge Diagnosis: 1:Puncture wound of left hand with foreign body Primary Care Physician: GAYLE ANDERSON CNP Provider Information Primary Provider: Chago Jaramillo MD Advanced Jacket Changer:Jovan Mg PA-C The exam and treatment you received in the Emergency Department were for an urgent problem and are not intended as complete care. It is important that you follow up with a doctor, nurse practitioner, or physician?s medical library assistant for ongoing care. If your symptoms become worse or you do not improve as expected and you are unable to reach your usual health care provider, you should return to the Emergency Department. We are available 24 hours a day. BROOKE BISWAS has been given the following list of patient education materials, prescriptions and follow-up instructions: Follow-up Instructions: With: Address: When: GAYLE PETERSQUINTIN [address] [place] [id number] Business (1) In 3 days 05/13/2018 Comments: Call tomorrow for recheck appointment. Augmentin as prescribed to help prevent infection keep wound clean and dry may cleanse with peroxide and soap and water. Use hand as tolerated. Follow-up sooner for any concerns of infection fever or chills In the event that this physician does not participate in your insurance network, please consult with your insurance company to find a nearby participating provider. Patient Education Materials: Puncture Wound A MESSAGE TO ALL PATIENTS REGARDING OPIOIDS PRESCRIPTION OPIOIDS: WHAT YOU NEED TO KNOW Prescription opioids can be used to help relieve nylujync-oo-ubhnks pain and are often prescribed following a surgery or injury, or for certain health conditions. These medications can be an important part of the treatment but also come with serious risks. It is important to work with your healthcare provider to make sure you are getting the safest, most effective care. WHAT ARE THE RISKS AND SIDE EFFECTS OF OPIOID USE? Prescription opioids carry serious risks of addiction and overdose, especially with prolonged use. An opioid overdose, often marked by slowed breathing, can cause sudden . The use of prescription opioids can have a number of side effects as well, even when taken as directed: ? Tolerance?meaning you might need to take more of the medication for the same pain relief ? Physical dependence?meaning you have symptoms of withdrawal when a medication is stopped ? Increased sensitivity to pain ? Constipation ? Nausea, vomiting, and dry mouth ? Sleepiness and dizziness ? Confusion ? Depression ? Low levels of testosterone that can result in lower sex drive, energy, and strength ? Itching and sweating RISKS ARE GREATER WITH: ? History of drug misuse, substance use disorder, or overdose ? Mental health conditions (such as depression or anxiety) ? Sleep apnea ? Older age (65 years and older) ? Avoid alcohol while taking prescription opioids. Also, unless specifically advised by your health care provider, medications to avoid include: ? Benzodiazepines (such as Xanax or Valium) ? Muscle relaxants (such as Soma or Flexeril) ? Hypnotics (such as Ambien or Lunesta) ? Other prescription opioids KNOW YOUR OPTIONS Talk to your health care provider about ways to manage your pain that don?t involve prescription opioids. Some of these options may actually work better and have fewer risks and side effects. Options may include: ? Pain relievers such as acetaminophen, ibuprofen, and naproxen ? Some medication that are also used for depression or seizures ? Physical therapy and exercise ? Cognitive behavioral therapy, a psychological, goal-directed approach, in which patients learn how to modify physical, behavioral, and emotional triggers of pain and stress. IF YOU ARE PRESCRIBED OPIOIDS FOR PAIN: ? Never take opioids in greater amounts or more often than prescribed. ? Follow up with your primary health care provider. o Work together to create a plan on how to manage your pain. o Talk about ways to help manage your pain that don?t involve prescription opioids. o Talk about any and all concerns and side effects. ? Help prevent misuse and abuse o Never sell or share prescription opioids. o Never use another person?s prescription opioids. ? Store prescription opioids in a secure place and out of reach of others (this may include visitors, children, friends, and family). ? Safely dispose of unused prescription opioids: Find your community drug take-back program or your pharmacy mail-back program, or flush them down the toilet, following guidance from the Food and Drug Administration (www.fda.gov/Drugs/Re sourcesForYou). ? Visit www.cdc.gov/drugoverd ose to learn about the risks of opioids abuse and overdose. ? If you believe you may be struggling with addiction, tell your health wound care rn and ask for guidance or call [facility]Emma National Helpline at 4-039-525-RWHH. v Source: US Department of Health and Human Services/Center for Disease Control & Prevention [facility] Medications Given: Medication Dose Route epinephrine-lidocaine 10.00 mL IntraDermal diphtheria/pertussis, acel/tetanus adult 0.50 mL Intramuscular-Immuniz ation amoxicillin-clavulana te 1.00 tab(s) Oral Medication Information: New Medications Printed Prescriptions amoxicillin-clavulana te (Augmentin 875 mg oral tablet) 1 Tabs By Mouth every 12 hours for 7 Days. Refills: 0. Medications to Continue with No Changes Other Medications acetaminophen-oxycodo ne (Percocet 325 mg-5 mg Tab) 2 Tabs By Mouth every 4 hours as needed for pain. Refills: 0. albuterol (Ventolin HFA 90 mcg/inh Aerosol) 2 Puffs Inhalation 4 times a day as needed Shortness of breath or wheezing. doxycycline (doxycycline monohydrate 100 mg oral capsule) 1 Capsules By Mouth 2 times a day. ibuprofen (ibuprofen 200 mg oral capsule) 2 Capsules By Mouth every 6 hours as needed as needed for pain. naproxen (naproxen 500 mg oral tablet) 1 Tabs By Mouth 2 times a day. sulfamethoxazole-trim ethoprim (sulfamethoxazole-tri methoprim 800 mg-160 mg oral tablet) 1 Tabs By Mouth 2 times a day. TAKE 1 TABLET BY MOUTH TWICE DAILY. Comment: Pharmacy Information: Thank you for choosing [facility] Patient Education Materials: Puncture Wound A puncture wound is an injury that extends through all layers of the skin and into the tissue beneath the skin (subcutaneous tissue). Puncture wounds become infected easily because germs often enter the body and go beneath the skin during the injury. Having a deep wound with a small entrance point makes it difficult for your caregiver to adequately clean the wound. This is especially true if you have stepped on a nail and it has passed through a dirty shoe or other situations where the wound is obviously contaminated. CAUSES Many puncture wounds involve glass, nails, splinters, fish hooks, or other objects that enter the skin (foreign bodies). A puncture wound may also be caused by a human bite or animal bite. DIAGNOSIS A puncture wound is usually diagnosed by your history and a physical exam. You may need to have an X-ray or an ultrasound to check for any foreign bodies still in the wound. TREATMENT ? Your caregiver will clean the wound as thoroughly as possible. Depending on the location of the wound, a bandage (dressing) may be applied. ? Your caregiver might prescribe antibiotic medicines. ? You may need a follow-up visit to check on your wound. Follow all instructions as directed by your caregiver. HOME CARE INSTRUCTIONS ? Change your dressing once per day, or as directed by your caregiver. If the dressing sticks, it may be removed by soaking the area in water. ? If your caregiver has given you follow-up instructions, it is very important that you return for a follow-up appointment. Not following up as directed could result in a chronic or permanent injury, pain, and disability. ? Only take xaom-djq-uvkbcsx or prescription medicines for pain, discomfort, or fever as directed by your caregiver. ? If you are given antibiotics, take them as directed. Finish them even if you start to feel better. You may need a tetanus shot if: ? You cannot remember when you had your last tetanus shot. ? You have never had a tetanus shot. If you got a tetanus shot, your arm may swell, get red, and feel warm to the touch. This is common and not a problem. If you need a tetanus shot and you choose not to have one, there is a rare chance of getting tetanus. Sickness from tetanus can be serious. You may need a rabies shot if an animal bite caused your puncture wound. SEEK MEDICAL CARE IF: ? You have redness, swelling, or increasing pain in the wound. ? You have red streaks going away from the wound. ? You notice a bad smell coming from the wound or dressing. ? You have yellowish-white fluid (pus) coming from the wound. ? You are treated with an antibiotic for infection, but the infection is not getting better. ? You notice something in the wound, such as rubber from your shoe, cloth, or another object. ? You have a fever. ? You have severe pain. ? You have difficulty breathing. ? You feel dizzy or faint. ? You cannot stop vomiting. ? You lose feeling, develop numbness, or cannot move a limb below the wound. ? Your symptoms worsen. MAKE SURE YOU: ? Understand these instructions. ? Will watch your condition. ? Will get help right away if you are not doing well or get worse. Document Released: 01/26/2006 Document Revised: 07/10/2012 Document Reviewed: 10/05/2011 ExitCare? Patient Information ?2014 [employer]. This information is not intended to replace advice given to you by your health care provider. Make sure you discuss any questions you have with your health care provider. TRUE [place] KELLY C , have received the following patient education materials/instruction s and have verbalized understanding: Patient Education Materials: Puncture Wound Follow-up Instructions: With: Address: When: GAYLE ANDERSON [address] [place] [address] [facility] (1) In 3 days 05/13/2018 Comments: Call tomorrow for recheck appointment. Augmentin as prescribed to help prevent infection keep wound clean and dry may cleanse with peroxide and soap and water. Use hand as tolerated. Follow-up sooner for any concerns of infection fever or chills Prescriptions: [amoxicillin-clavulan ate (Augmentin 875 mg oral tablet)] Patient Signature Date Clinician/Nurse Signature Date 05/10/18 18:01:07 Normal [facility] Vital Signs Date Time Vital Sign Value Performing Clinician Faci lity 06-28-2019 18:59-0500 BMI (Body Mass Index) 33.41 kg/m2 Renee Yen [facility] [place], [place] 06-28-2019 18:59-0500 Body Temperature 98.49 [degF] Renee Reardon [facility], [place] 06-28-2019 18:59-0500 Body weight 85.55 [facility], [place] 06-28-2019 18:59-0500 BP Diastolic 84 mm[Hg] [facility], [place] 06-28-2019 18:59-0500 BP Systolic 143 mm[Hg] [facility], [place] 06-28-2019 18:59-0500 Height 160 cm [facility], [place] 06-28-2019 18:59-0500 Pulse (Heart Rate) 92 /min [facility], [place] 06-28-2019 18:59-0500 Pulse Oximetry 95 % [facility], [place] 06-28-2019 18:59-0500 Respiratory Rate 18 /min [facility], [place] Encounters Encounter Date Encounter Type Care Provider Facility Start: 11-28-2023 End: 11-28-2023 ambulatory RENEE KHOURY Not Available Start: 11-18-2023 End: 11-20-2023 ambulatory [facility] Start: 11-14-2023 End: 11-14-2023 ambulatory RENEE KHOURY Not Available Start: 11-14-2023 End: 11-14-2023 ambulatory RENEE KHOURY Not Available Start: 11-07-2023 End: 11-07-2023 ambulatory RENEE KHOURY Not Available Start: 09-08-2023 End: 09-10-2023 ambulatory [facility] Start: 09-08-2023 End: 09-10-2023 Subsequent hospital visit by physician [facility] Comment on above: Other screening mamm ogram Start: 04-16-2020 End: 04-16-2020 Subsequent hospital visit by physician Robert Evans [facility] Laboratory Comment on above: Suspected COVID-19 v irus infection Start: 02-09-2020 End: 02-09-2020 Subsequent hospital visit by physician Robert Evans [facility] Laboratory Comment on above: Encounter for screen ing for HIV; Screening cholesterol level Start: 07-26-2019 End: 07-28-2019 Subsequent hospital visit by physician [facility] Mri [facility] MRI Comment on above: Achilles tendinitis of left lower extremity Start: 06-28-2019 End: 06-28-2019 Emergency department patient visit Renee Reardon Work Phone: [facility] ED Comment on above: Achilles tendinitis of left lower extremity (Primary Dx) Start: 05-10-2018 End: 05-10-2018 Emergency department patient visit GAYLE ANDERSON [place] [place] Date Procedure Procedure Detail Performing Clinician Start: 02-09-2020 Antibody hiv-1&hiv-2 single result Robert Back Work Phone: Start: 02-09-2020 Comprehensive metabo lic panel Robert Back Work Phone: Start: 02-09-2020 Lipid panel Robert Back Work Phone: Start: 02-09-2020 PATIENT FASTING? Robert Back Work Phone: Start: 07-26-2019 Mri any jt lower ext rem w/o contrast matrl Renee Khoury Work Phone: Plan of Treatment Date Care Activity Detail Author Start: 09-07-2028 Lipid panel Lipids [facility] [employer] Start: 06-20-2028 DTaP/Tdap/Td vaccine (3 - Td or Tdap) DTaP/Tdap/Td vaccine (3 - Td or Tdap) [facility] Start: 2027 Shingles Vaccine (1 of 2) Shingles Vaccine (1 of 2) [place], [place] Start: 02-08-2025 Lipid panel Lipid screen [place], [place] Start: 09-06-2024 Depression Screen Depression [facility] Start: 03-20-2024 End: 03-20-2024 Patient encounter procedure 03/20/2024 3:45 PM EST Office Visit [facility] [address] [place] [id number] Robert Evans MD [address] [place] [address] 6 m check up [facility] Comment on above: 6 m check up Start: 12-01-2023 Influenza vaccination Flu vacc ine (Season Ended) [facility] Start: 02-28-2022 Lipid panel Lipid screen [place], [place] Start: 02-28-2022 Lipid screen Lipid screen [place], [place] Start: 2022 Screening for malign ant neoplasm of colon [facility] Start: 07-04-2020 End: 07-04-2020 Office Visit 07/04/2020 Office Visit Family Medicine Robert Evans MD [address] [place] [address] [phone] [facility] Start: 01-01-2020 Influenza vaccination Flu vaccine (# 1) [place], [place] Start: 08-02-2019 Pneumococcal 0-64 ye ars Vaccine (1 of 1 - PPSV23) Pneumococcal 0-64 years Vaccine (1 of 1 - PPSV23) [place], [place] Comment on above: Postponed from 02/22 (Patient Refused) Start: 12-31-2018 Influenza vaccination Flu vaccine (# 1) [place], [place] Start: 2017 Diabetes screen Diabetes screen [place], [place] Start: 02-23-2012 Diabetes screen Diabetes screen [facility] Start: 02-23-1996 DTaP/Tdap/Td vaccine (1 - Tdap) DTaP/Tdap/Td vaccine (1 - Tdap) [place], [place] Start: 1995 Hepatitis C screening Hepatitis C sc reen [facility] Start: 02-23-1992 HIV screen HIV screen [place], [place] Start: 02-23-1992 HIV screening HIV screen [place], [place] Start: 02-23-1988 DTaP/Tdap/Td vaccine (1 - Tdap) DTaP/Tdap/Td vaccine (1 - Tdap) [place], [place] Start: 1983 Pneumococcal 0-64 ye ars Vaccine (1 of 1 - PPSV23) Pneumococcal 0-64 years Vaccine (1 of 1 - PPSV23) [place], [place] Start: 1983 Pneumococcal 0-64 ye ars Vaccine (1 of 2 - PCV) Pneumococcal 0-64 years Vaccine (1 of 2 - PCV) [facility] Start: 1977 COVID-19 Vaccine (#1) COVID-19 Vacci ne (#1) [facility] Start: 1977 Hepatitis B vaccine (1 of 3 - 3-dose series) Hepatitis B vaccine (1 of 3 - 3-dose series) [facility] End: 04-16-2020 COVID-19 Ambulatory COVID-19 Ambulatory Lab Routine Suspected Covid-19 Virus Infection 1 Occurrences starting 04/16/2020 until 04/16/2020 [place], [place] Comment on above: 1 Occurrences starti ng 04/16/2020 until 04/16/2020 COVID-19 Ambulatory COVID-19 Amb ulatory Lab Routine Suspected COVID-19 virus infection 04/16/2020 12:09 PM [place], [place] End: 09-08-2023 DBT Breast - bilateral screening [facility] Comment on above: 1 Occurrences starti ng 09/08/2023 until 09/08/2023 End: 06-28-2019 XR FOOT LEFT (MIN 3 VIEWS) XR FOOT LEFT (MIN 3 VIEWS) Imaging Routine Once for 1 Occurrences starting 06/28/2019 until 06/28/2019 [place], [place] Comment on above: Once for 1 Occurrenc es starting 06/28/2019 until 06/28/2019 XR FOOT LEFT (MIN 3 VIEWS) XR FOOT LEFT (MIN 3 VIEWS) Imaging STAT 06/28/2019 7:17 PM [place], [place] Immunizations Immunization Date Immunization Notes Care Provider Mona mcguire 06-20-2018 tetanus toxoid, redu jayde diphtheria toxoid, and acellular pertussis vaccine, adsorbed [facility] Payers Date Payer Category Payer Unknown [id number] 2019 Unknown BCBS BCBS OUT OF STATE xxxxxxxxxxxx 2019-Present [address] [place] [address] xxxxxxxxxxxx [id number] 2019 Unknown BCBS BCBS OUT OF STATE [id number] 2019-Present [address] [place] [address] [id number] 2018 Unknown [id number] 2016 Unknown [employer] [facility] MEDICAID xxxxxxxxxxx 2016-Present [phone] CLAIMS DEPARTMENT [address] [place] [address] xxxxxxxxxxx [id number] 1977 Unknown [id number] 1977 Unknown [id number] 1977 Unknown [id number] 1977 Unknown [id number] 1977 Unknown [id number] 1977 Unknown [id number] 1977 Unknown [id number] 9 1977 Unknown [id number] 9 1977 Unknown [id number] Social History Date Type Detail Facility Start: 06-28-2019 End: 05-10-2023 Tobacco smoking status NHIS Current every day smoker [facility] History of tobacco use [place] Start: 06-28-2019 End: 11-09-2022 Cigarettes smoked current (pack per day) - Reported [facility] - Financial Reconciliation Start: 06-28-2019 End: 09-09-2023 Alcohol intake Current non-drinker of alcohol (finding) [facility] [place] Start: 1975 Sex Assigned At Not on file [place] Start: 12-31-2019 End: 05-10-2023 Tobacco use and exposure Never used [place] Start: 11-09-2022 End: 09-09-2023 Tobacco use panel [facility] - Financial Reconciliation How hard is it for y ou to pay for the very basics like food, housing, medical care, and heating Not very hard [facility] Patient Health Questionnaire 9 item (PHQ-9) total score [Reported] 0 [facility] (I/We) worried wheth er (my/our) food would run out before (I/we) got money to buy more. Never true [facility] At any time in the p ast 12 months, were you homeless or living in [place] [facility] [including now]? No [facility] Evaluation note Note Date & Type Note Facility Evaluation note Diagnosis Other screening mammogram documented in this encounter [facility] Summary Purpose Family History No Family History Records FoundNo Family History Records FoundNo Family History Records Found Advance Directives No Advanced Directives Records FoundDocuments on File Type Date Recorded Patient Associate Relations Specialist Expl anation Advance Directives and Living Will Power of [employer] Documents on File Type Date Recorded Patient Associate Relations Specialist Expl anation ACP-Advance Directive ACP-Power of [employer] Documents on File Type Date Recorded Patient Associate Relations Specialist Expl anation Advance Directives and Living Will Power of [employer] Reason for Referral Status Reason Specialty Diagnoses / Procedures Referred By Contact Referred To Contact Pending Review Radiology Diagnoses Achilles tendinitis of left lower extremity Procedures MRI ANKLE LEFT WO CONTRAST Renee Khoury DPM [address] [facility], [facility] [place] [address] Specialty Diagnoses / Procedures Referred By Contac t Referred To Contact Radiology Diagnoses Other screening mammogram Procedures DREW GEMINI DIGITAL SCREEN BILATERAL Brooke Wallis, SERVICE LINE COORDINATOR - GUN SEALING MACHINE OPERATOR [address] [place] [address] Referral ID Status Reason Start Date Expiration Date Visits Re quested Visits Authorized [id number] Closed 09/07/2023 09/06/2024 1 1 Assessments Diagnosis Achilles tendinitis of left lower extremity Achilles bursitis or tendinitis Diagnosis Encounter for screening for HIV Screening cholesterol level Screening for lipoid disorders Diagnosis Suspected COVID-19 virus infection Diagnosis Achilles tendinitis of left lower extremity- Primary Achilles bursitis or tendinitis Discharge Instructions * Instructions* Renee Reardon MD - 06/28/2019 Ice as needed, motrin / tylenol for pain * Attachments The following attachments cannot be sent through Care Everywhere. * Tendon Injury (Tendinopathy) (Egyptian) documented in this encounter Additional Source Comments INFORMATION SOURCE (unrecogn ized section and content) DATE CREATED AUTHOR 05/21/2018 [facility] DATE CREATED AUTHOR AUTHOR'S ORGANIZ ATION 11/25/2023 [facility] Matthew lagunas DATE CREATED AUTHOR AUTHOR'S ORGANIZ ATION 11/30/2023 [facility] EPIC Reason for Visit (unrecogniz ed section and content) Status Reason Specialty Diagnoses / Procedures Referred By Contact Referred To Contact Closed Radiology Diagnoses Achilles tendinitis, left leg Achilles tendinitis, left leg Procedures HC MRI LOWER EXT JNT W/O CONT CT MRI LOWER EXTREM JT, W/O CONTRAST MRI LOWER EXTREM JT, W/O CONTRAST Renee Khoury DPM [address] [facility], [facility] [place] [address] [facility] [address] [place] [address] Reason Comments Foot Pain States left back of foot pain since 1600 yesterday, states that only thing she thinks she may have done was run yesterday afternoon around 1430; The pain only occurs when she walks; Specialty Diagnoses / Procedures Referred By Heri ag Referred To Contact Radiology Diagnoses Other screening mammogram Procedures DREW GEMINI DIGITAL SCREEN BILATERAL Brooke Wallis, SERVICE LINE COORDINATOR - GUN SEALING MACHINE OPERATOR [address] [place] [address] Referral ID Status Reason Start Date Expiration Date Visits Re quested Visits Authorized [id number] Closed 09/07/2023 09/06/2024 1 1 Care Teams (unrecognized sec tion and content) Flow Floor Attendant Relationship Specialty Start Date End Date Mauricio, MD [place] [phone] PCP - General Internal Medicine 12/17/19 FOR RECORDS PERTAINING TO PATIENTS WHO ARE OR HAVE BEEN ENROLLED IN A CHEMICAL DEPENDENCY/SUBSTANCEABUSE PROGRAM, SOME INFORMATION MAY BE OMITTED. This clinical summary was aggregated from multiple sources. Caution should be exercised in using it in the provision of clinical care. This summary normalizes information from multiple sources, and as a consequence, information in this document may materially change the coding, format and clinical context of patient data. In addition, data may be omitted in some cases. CLINICAL DECISIONS SHOULD BE BASED ON THE PRIMARY CLINICAL RECORDS. [employer] [facility]. provides no warranty or guarantee of the accuracy or completeness of information in this document.
== END 2023-12-20 08:36 | disposition home or self-care (01) ==
LOC: VC 08:35
PROVIDERS: Visit Provider Physician Assistant
DX: R09.89 Other specified symptoms and signs involving the circulatory and respiratory systems (principal)
CPT/HCPCS: 93923

== ENCOUNTER 2023-12-23 13:23 | Outpatient (OUT) | payer BC, SELFPAY ==
--- OUTSIDE RECORDS SUMMARY | 2023-12-23 13:34 | XMS_ITS | CCD ---
Author Organization [facility] Care Team Providers Care [employer] Supervisor Name Role Phone GAYLE ANDERSON Primary Care Unavailable Chago Jaramillo Admitting Unavailable Chago Jaramillo Attending Unavailable Gayle Anderson Primary Care Provider Robert Evans Primary Care Provider Robert Evans MD Primary Care Provider [phone] BROOKE WALLIS Referring Unavailable BACKROBERT Primary Care [...] Acetaminophen / HYDROcodone; Translations: [Vicodin] Drug Allergy [facility] Repository (1 source) lamoTRIgine; Translations: [LaMICtal] Drug Allergy [facility] Repository (1 source) lurasidone; Translations: [Latuda] Drug Allergy [facility] Repository (5 sources) Acetaminophen / HYDROcodone Drug Allergy 06-28-2019 [place], [place] (5 sources) lamoTRIgine Drug Allergy 01-06-2017 [place], [place] (5 sources) lurasidone Drug Allergy 01-06-2017 [place], [place] (5 sources) Morphine Drug Allergy 01-04-2018 [place] Medications Current Medications Medication Drug Class(es) Dates Sig (Normalized) Sig (Original) acetaminophen 325 mg oral tablet (5 sources) take 2 tablets by mouth every six hours as needed for pain acetaminophen (TYLENOL) 325 MG tablet Take 2 tablets by mouth every 6 hours as needed for Pain 0 Active [id number] 200 actuat albuterol 0.09 mg/actuat metered dose [...] Interpreted by: Nik Plaza MD Signed by: Nik Plaza MD 11/23/23 Final result Normal [facility] GEMINI DIGITAL SCREEN HENRY Atwood 09-13-2023 [facility] GEMINI DIGITAL SCREEN BILATERAL HISTORY: Screening. TECHNIQUE: [...] Stephens Jr., MD 09/13/23 Final result Normal [facility] CBC with Diffon 09-08-2023 Abs. Basophil 0.03 k/uL Normal 0.00-0.20 [facility] Comment on above: Performed By: #### C DP, CP, TSH #### [facility] [address] [place] [address] ( 3Rd Mate: Alfonzo Swanson MD #### LIPR #### [place] [phone] ( 3Rd Mate: Woody Terrell MD Abs.Imm.Granulocyte 0.02 k/uL Normal 0.00-0.30 [facility] Comment on above: Performed By: #### C DP, CP, TSH #### [facility] [address] [place] [phone] ( 3Rd Mate: Alfonzo Swanson MD #### LIPR #### [address] [phone] 3Rd Mate: Woody Terrell MD Abs.Neutrophil (Seg) 4.76 k/uL Normal 2.5-7.0 [facility] Comment on above: Performed By: #### C DP, CP, TSH #### [facility] [address] [place] [phone] ( 3Rd Mate: Alfonzo Swanson MD #### LIPR #### [place] [address] 3Rd Mate: Woody Terrell MD Basophils/100 WBC (Bld) 0 % Normal 0-2 [facility] Comment on above: Performed By: #### C DP, CP, TSH #### [facility] [address] [place] [address] 3Rd Mate: Alfonzo Swanson MD #### LIPR #### [place] [address] [place], [place] [phone] 3Rd Mate: Woody Terrell MD Eosinophils (Bld) [#/Vol] 0.38 10*3/uL Normal 0.00-0.40 [facility] Comment on above: Performed By: #### C DP, CP, TSH #### [facility] [address] [place] [address] 3Rd Mate: Alfonzo Swanson MD #### LIPR #### [address] [phone] 3Rd Mate: Woody Terrell MD Eosinophils/100 WBC (Bld) 5 % Normal 0-5 [facility] Comment on above: Performed By: #### C DP, CP, TSH #### [facility] [address] [place] [address] 3Rd Mate: Alfonzo Swanson MD #### LIPR #### [address] [phone] 3Rd Mate: Woody Terrell MD Erythrocyte distribution width (RBC) [Ratio] 12.8 % Normal 12.1-15.2 [facility] Comment on above: Performed By: #### C DP, CP, TSH #### [facility] [address] [place], [place] [phone] 3Rd Mate: Alfonzo Swanson MD #### LIPR #### [address] [phone] 3Rd Mate: Woody Terrell MD Hematocrit (Bld) [Volume fraction] 44.9 % Normal 36.0-46.0 [facility] Comment on above: Performed By: #### C DP, CP, TSH #### [facility] [address] [place], [place] [id number] 3Rd Mate: Alfonzo Swanson MD #### LIPR #### [place] [address] [place], [place] [phone] 3Rd Mate: Woody Terrell MD Hemoglobin (Bld) [Mass/Vol] 15.8 g/dL Normal 12.0-16.0 [facility] Comment on above: Performed By: #### C DP, CP, TSH #### [facility] [address] [place] [address] 3Rd Mate: Alfonzo Swanson MD #### LIPR #### [place] [address] [place], [place] [id number] 3Rd Mate: Woody Terrell MD Immature granulocytes/100 WBC (Bld) 0 % Normal 0-5 [facility] Comment on above: Performed By: #### C DP, CP, TSH #### [facility] [address] [place] [address] 3Rd Mate: Alfonzo Swanson MD #### LIPR #### [address] [id number] 3Rd Mate: Woody Terrell MD Lymphocytes (Bld) [#/Vol] 2.86 10*3/uL Normal 1.00-4.80 [facility] Comment on above: Performed By: #### C DP, CP, TSH #### [facility] [address] [place] [address] 3Rd Mate: Alfonzo Swanson MD #### LIPR #### [address] [id number] 3Rd Mate: Woody Terrell MD Lymphocytes/100 WBC (Bld) 34 % Normal 15-40 [facility] Comment on above: Performed By: #### C DP, CP, TSH #### [facility] [address] [place] [address] 3Rd Mate: Alfonzo Swanson MD #### LIPR #### [place] [address] [place] [address] 3Rd Mate: Woody Terrell MD MCH (RBC) [Entitic mass] 30.2 pg Normal 26.0-34.0 [facility] Comment on above: Performed By: #### C DP, CP, TSH #### [facility] [address] [place] [address] 3Rd Mate: Alfonzo Swanson MD #### LIPR #### [place] [id number] 3Rd Mate: Woody Terrell MD MCHC (RBC) [Mass/Vol] 35.2 g/dL Normal 31.0-37.0 [facility] Comment on above: Performed By: #### C LYNDSAY CP, TSH #### [facility] [address] [place] [address] 3Rd Mate: Alfonzo Swanson MD #### LIPR #### [place] [id number] 3Rd Mate: Woody Terrell MD MCV (RBC) [Entitic vol] 85.7 fL Normal 80.0-100.0 [facility] Comment on above: Performed By: #### C DP, CP, TSH #### [facility] [address] [place] [address] 3Rd Mate: Alfonzo Swanson MD #### LIPR #### [place] [id number] 3Rd Mate: Woody Terrell MD Monocytes (Bld) [#/Vol] 0.40 10*3/uL Normal 0.00-1.00 [facility] Comment on above: Performed By: #### C DP, CP, TSH #### [facility] [address] [place], [place] [id number] 3Rd Mate: Alfonzo Swanson MD #### LIPR #### [place] [address] [place], [place] 1577208 3Rd Mate: Woody Terrell MD Monocytes/100 WBC (Bld) 5 % Normal 4-8 [facility] Comment on above: Performed By: #### C DP, CP, TSH #### [facility] [address] [place], [place] [phone] 3Rd Mate: Alfonzo Swanson MD #### LIPR #### [address] [id number] 3Rd Mate: Woody Terrell MD Neutrophil (Seg) 56 % Normal 47-75 [facility] Comment on above: Performed By: #### C DP, CP, TSH #### [facility] [address] [place] [phone] 3Rd Mate: Alfonzo Swanson MD #### LIPR #### [address] [address] 3Rd Mate: Woody Terrell MD Platelet mean volume (Bld) [Entitic vol] 10.7 fL Normal 6.0-12.0 [facility] Comment on above: Performed By: #### C DP, CP, TSH #### [facility] [address] [place], [place] [phone] 3Rd Mate: Alfonzo Swanson MD #### LIPR #### [address] [id number] 3Rd Mate: Woody Terrell MD Platelets (Bld) [#/Vol] 274 10*3/uL Normal 140-450 [facility] Comment on above: Performed By: #### C DP, CP, TSH #### [facility] [address] [place] [phone] 3Rd Mate: Alfonzo Swanson MD #### LIPR #### [place] [address] [place], [place] [phone] 3Rd Mate: Woody Terrell MD RBC (Bld) [#/Vol] 5.24 10*6/uL High 4.00-5.20 [facility] Comment on above: Performed By: #### C DP, CP, TSH #### [facility] [address] [place] [address] 3Rd Mate: Alfonzo Swanson MD #### LIPR #### [address] [phone] 3Rd Mate: Woody Terrell MD WBC (Bld) [#/Vol] 8.5 10*3/uL Normal 3.5-11.0 [facility] Comment on above: Performed By: #### C LYNDSAY CP, TSH #### [facility] [address] [place] [phone] ( 3Rd Mate: Alfonzo Swanson MD #### LIPR #### [place] [address] 3Rd Mate: Woody Terrell MD Comp Metabolic Profon 2023 Albumin [Mass/Vol] 4.2 g/dL Normal 3.5-5.2 [facility] Comment on above: Performed By: #### C DP CP, TSH #### [facility] [address] [place] [address] 3Rd Mate: Alfonzo Swanson MD #### LIPR #### [address] [address] 3Rd Mate: Woody Terrell MD Alkaline Phos 71 U/L Normal 35-104 [facility] Comment on above: Performed By: #### C DP, CP, TSH #### [facility] [address] [place], [place] [id number] 3Rd Mate: Alfonzo Swanson MD #### LIPR #### [facility] [address] [place], [place] [phone] 3Rd Mate: Woody Terrell MD ALT [Catalytic activity/Vol] 27 U/L Normal 5-33 [facility] Comment on above: Performed By: #### C DP, CP, TSH #### [facility] [address] [place], [place] [phone] 3Rd Mate: Alfonzo Swanson MD #### LIPR #### [place] [address] [place], [place] [phone] 3Rd Mate: Woody Terrell MD Anion gap [Moles/Vol] 14 mmol/L Normal 9-17 [facility] Comment on above: Performed By: #### C DP, CP, TSH #### [facility] [address] [place], [place] [id number] 3Rd Mate: Alfonzo Swanson MD #### LIPR #### [address] [phone] 3Rd Mate: Woody Terrell MD AST [Catalytic activity/Vol] 21 U/L Normal <32 [facility] Comment on above: Performed By: #### C DP, CP, TSH #### [facility] [address] [place], [place] [id number] 3Rd Mate: Alfonzo Swanson MD #### LIPR #### [facility] [address] [place] [address] [id number] 3Rd Mate: Woody Terrell MD Bilirubin [Mass/Vol] 0.3 mg/dL Normal 0.3-1.2 [facility] Comment on above: Performed By: #### C DP, CP, TSH #### [facility] [address] [place], [place] [id number] 3Rd Mate: Alfonzo Swanson MD #### LIPR #### [facility] [address] [place] [address] 3Rd Mate: Woody Terrell MD BUN/CRE Ratio 14 Normal 9-20 [facility] Comment on above: Performed By: #### C DP, CP, TSH #### [facility] [address] [place] [address] 3Rd Mate: Alfonzo Swanson MD #### LIPR #### [facility] [address] [place] [address] 3Rd Mate: Woody Terrell MD Calcium [Mass/Vol] 9.1 mg/dL Normal 8.6-10.4 [facility] Comment on above: Performed By: #### C DP, CP, TSH #### [facility] [address] [place] [address] 3Rd Mate: Alfonzo Swanson MD #### LIPR #### [facility] [address] [place] [address] 3Rd Mate: Woody Terrell MD Chloride [Moles/Vol] 103 mmol/L Normal 98-107 [facility] Comment on above: Performed By: #### C DP, CP, TSH #### [facility] [address] [place] [address] 3Rd Mate: Alfonzo Swanson MD #### LIPR #### [facility] [address] [place] [address] 3Rd Mate: Woody Terrell MD CO2 [Moles/Vol] 20 mmol/L Normal 20-31 [facility] Comment on above: Performed By: #### C DP, CP, TSH #### [facility] [address] [place] [address] 3Rd Mate: Alfonzo Swanson MD #### LIPR #### [facility] [address] [place] [address] 3Rd Mate: Woody Terrell MD Creatinine [Mass/Vol] 0.8 mg/dL Normal 0.5-0.9 [facility] Comment on above: Performed By: #### C TEJAL UMANA, TSH #### [facility] [address] [place], [place] [phone] 3Rd Mate: Alfonzo Swanson MD #### LIPR #### [place] [address] [place], [place] [phone] 3Rd Mate: Woody Terrell MD GFR/1.73 sq M.predicted among non-blacks MDRD (S/P/Bld) [Vol rate/Area] mL/min/{1.73_m2} Normal >60 [facility] Comment on above: Result Comment: These [...] By: #### C TEJAL UMANA, TSH #### [facility] [address] [place], [place] [phone] 3Rd Mate: Alfonzo Swanson MD #### LIPR #### [place] [address] [place], [place] [phone] 3Rd Mate: Woody Terrell MD Glucose [Mass/Vol] 102 mg/dL High 70-99 [facility] Comment on above: Performed By: #### C TEJAL UMANA, TSH #### [facility] [address] [place], [place] [id number] 3Rd Mate: Alfonzo Swanson MD #### LIPR #### [facility] [address] [place] [address] [phone] 3Rd Mate: Woody Terrell MD Potassium [Moles/Vol] 3.8 mmol/L Normal 3.7-5.3 [facility] Comment on above: Performed By: #### C DP, CP, TSH #### [facility] [address] [place], [place] [phone] 3Rd Mate: Alfonzo Swanson MD #### LIPR #### [address] [address] 3Rd Mate: Woody Terrell MD Protein [Mass/Vol] 7.0 g/dL Normal 6.4-8.3 [facility] Comment on above: Performed By: #### C DP, CP, TSH #### [facility] [address] [place], [place] [phone] 3Rd Mate: Alfonzo Swanson MD #### LIPR #### [address] [phone] 3Rd Mate: Woody Terrell MD Sodium [Moles/Vol] 137 mmol/L Normal 135-144 [facility] Comment on above: Performed By: #### C DP, CP, TSH #### [facility] [address] [place], [place] 1479390 3Rd Mate: Alfonzo Swanson MD #### LIPR #### [address] [address] 3Rd Mate: Woody Terrell MD Urea nitrogen [Mass/Vol] 11 mg/dL Normal 6-20 [facility] Comment on above: Performed By: #### C DP, CP, TSH #### [facility] [address] [place], [place] [phone] 3Rd Mate: Alfonzo Swanson MD #### LIPR #### [address] [address] 3Rd Mate: Woody Terrell MD Lipid Profileon 09-08-2023 Cholesterol [Mass/Vol] 277 mg/dL High 0-199 [facility] Comment on above: Result Comment: Cholesterol Guidelines: <200 Desirable 200-240 Borderline >240 Undesirable Performed By: #### C DP, CP, TSH #### [facility] [address] [place] [address] 3Rd Mate: Alfonzo Swanson MD #### LIPR #### [facility] [place] [address] [place] [address] 3Rd Mate: Woody Terrell MD Cholesterol in HDL [Mass/Vol] 35 mg/dL Low >40 [facility] Comment on above: Result Comment: HDL Guidelines: <40 Undesirable 40-59 Borderline >59 Desirable Performed By: #### C DP, CP, TSH #### [facility] [address] [place], [place] [phone] 3Rd Mate: Alfonzo Swanson MD #### LIPR #### [address] [address] 3Rd Mate: Woody Terrell MD Cholesterol in LDL [Mass/Vol] 169 mg/dL High 0-100 [facility] Comment on above: Result Comment: LDL Guidelines: <100 Desirable 100-129 Near to/above Desirable 130-159 Borderline >159 Undesirable Direct (measured) LDL and calculated LDL are not interchangeable tests. Performed By: #### C DP, CP, TSH #### [facility] [address] [place] [address] 3Rd Mate: Alfonzo Swanson MD #### LIPR #### [facility] [address] [place] [address] 3Rd Mate: Woody Terrell MD Cholesterol in VLDL [Mass/Vol] 72 mg/dL Normal [facility] Comment on above: Performed By: #### C DP, CP, TSH #### [facility] [address] [place] [address] 3Rd Mate: Alfonzo Swanson MD #### LIPR #### [facility] [place] [address] [place] [address] 3Rd Mate: Woody Terrell MD Cholesterol.total/Ch olesterol in HDL [Mass ratio] 8.0 {ratio} Normal [facility] Comment on above: Performed By: #### C TEJAL UMANA, TSH #### [facility] [address] [place], [place] [phone] 3Rd Mate: Alfonzo Swanson MD #### LIPR #### [address] [phone] 3Rd Mate: Woody Terrell MD Triglyceride [Mass/Vol] 362 mg/dL High <150 [facility] Comment on above: Result Comment: Triglyceride Guidelines: <150 Desirable 150-199 Borderline 200-499 High >499 Very high Based on AHA Guidelines for fasting triglyceride, January 2012. Performed By: #### C TEJAL UMANA, TSH #### [facility] [address] [place], [place] [phone] 3Rd Mate: Alfonzo Swanson MD #### LIPR #### [place] [address] [place], [place] [phone] 3Rd Mate: Woody Terrell MD Thyroid Stim. Horm.on 2023 Thyroid Stim. Horm. 2.41 uIU/mL Normal 0.30-5.00 [facility] Comment on above: Performed By: #### C TEJAL UMANA, TSH #### [facility] [address] [place], [place] [phone] 3Rd Mate: Alfonzo Swanson MD #### LIPR #### [place] [address] [place], [place] [phone] 3Rd Mate: Woody Terrell MD Comprehensive Metabolic Pane ramona 02-09-2020 Albumin [Mass/Vol] 5 g/dL 3.5 - 5.2 g/dL [place], [place] Albumin/Globulin [Mass ratio] NOT REPORTED [place] ALP [Catalytic activity/Vol] 64 U/L 35 - 104 U/L [place] ALT [Catalytic activity/Vol] 40 U/L High 5 - 33 U/L [place] Anion gap [Moles/Vol] 11 mmol/L 9 - 17 mmol/L [place] AST [Catalytic activity/Vol] 29 U/L <32 [place] Bilirubin Ql (U) 0.46 mg/dL 0.3 - 1.2 mg/dL [place] Bun/Cre Ratio 14 [place] Calcium [Mass/Vol] 9.9 mg/dL 8.6 - 10.4 mg/dL [place] Chloride [Moles/Vol] 102 mmol/L 98 - 107 mmol/L [place] CO2 [Moles/Vol] 24 mmol/L 20 - 31 mmol/L [place] Creatinine [Mass/Vol] 1.03 mg/dL High 0.5 - 0.9 mg/dL [place] GFR >60 >60 mL/min [place] GFR Non- 59 mL/min Low >60 [place] GFR/1.73 sq M predicted among non-blacks MDRD (S/P/Bld) [Vol rate/Area] NOT REPORTED [place] GFR/1.73 sq M predicted among non-blacks MDRD (S/P/Bld) [Vol rate/Area] [place] Comment on above: Average GFR for 40-4 9 years old: 99 mL/min/1.73sq m Chronic Kidney Disease: <60 mL/min/1.73sq m Kidney failure: <15 mL/min/1.73sq m eGFR calculated using average adult body mass. Additional eGFR calculator available at: http://www.TransEngen.CSMG/multiple_crcl_2012.htm Glucose [Mass/Vol] 106 mg/dL High 70 - 99 mg/dL [place] Interpretation and review of laboratory results Abnormal [place] Potassium [Moles/Vol] 4.3 mmol/L 3.7 - 5.3 mmol/L [place] Protein [Mass/Vol] 7.8 g/dL 6.4 - 8.3 g/dL [place] Sodium [Moles/Vol] 137 mmol/L 135 - 144 mmol/L [place] Urea nitrogen [Mass/Vol] 14 mg/dL 6 - 20 mg/dL [place] HIV Screenon 02-09-2020 HIV Ag/Ab NONREACTIVE NONREACTIVE [place] Comment on above: No laboratory eviden ce of HIV infection. If acute HIV infection is suspected, consider testing for HIV-1 RNA. Lipid Panelon 02-09-2020 Cholesterol [Mass/Vol] 238 mg/dL High <200 [place] Comment on above: Cholesterol Guidelines: <200 Desirable 200-240 Borderline >240 Undesirable Cholesterol in HDL [Mass/Vol] 28 mg/dL Low >40 [place] Comment on above: HDL Guidelines: <40 Undesirable 40-59 Borderline >59 Desirable Cholesterol in LDL [Mass/Vol] 146 mg/dL High 0 - 130 mg/dL [place] Comment on above: LDL Guidelines: <100 Desirable 100-129 Near to/above Desirable 130-159 Borderline >159 Undesirable Direct (measured) LDL and calculated LDL are not interchangeable tests. Cholesterol in VLDL [Mass/Vol] NOT REPORTED High 1 - 30 mg/dL [place] Cholesterol.total/Ch olesterol in HDL [Mass ratio] 8.5 {ratio} High <5 [place] Interpretation and review of laboratory results Abnormal [place] Triglyceride [Mass/Vol] 322 mg/dL High <150 [place] Comment on above: Triglyceride Guidelines: <150 Desirable 150-199 Borderline 200-499 High >499 Very high Based on AHA Guidelines for fasting triglyceride, January 2012. Patient Fasting?on 0 Patient Fasting? YES [place] MRI ANKLE LEFT WO CONTRASTon 07-26-2019 [...] 5. Small posterior facet subtalar joint effusion. [place] CLINICAL HISTORY: Left ankle Achilles tendinopathy [...] lateral and medial ankle ligaments appear intact. [place] Mario, [facility] Incoming Radiant Results From [employer] [facility] - 07/26/2019 11:47 AM EDT CLINICAL HISTORY: [...] 5. Small posterior facet subtalar joint effusion. [place] Coding Summary.on 05-16-2018 Coding Summary. CODING DATE: 05/16/2018 [facility] STATUS: Home ([facility]) PAYOR: Medicaid EAPG DESCRIPTION [id number] [...] Revised Date Saved: 05/16/2018 11:47 am Normal [facility] ED Note-Physicianon 05-11-19 ED Note-Physician Basic Information [...] Appropriate mood & affect. Integumentary: Warm, Dry, [place] Procedure Patient left hand was prepped and [...] In 3 days 05/13/2018 [place] [address]- Business (1) Additional Instructions: Call tomorrow for [...] made to ensure accuracy, however, inadvertently computerized sponge hooker mistakes may be present. Patient was treated and evaluated by the physician fire assistant. The attending physician was in the [...] ulnar palm Read By: Jovan Mg PA-C [facility] Comment on above: Result Comment: Elec tronically [...] MD Transcribed by: nette Technologist: BEBA Roca [facility] XR Hand 3+ Views Lefton 05-02 XR [...] MD Transcribed by: nette Technologist: BEBA Roca [facility] ED Clinical Summaryon 2018 ED Clinical Summary [place] [id number] ED Clinical Summary Person Information Name: BROOKE BISWAS [facility] Age: 43 Years : 1975 12:00 AM Sex: Female Language: Equ[place]ine[place] PCP: GAYLE ANDERSON CNP Marital Status: Phone: [phone] Visit Id: Visit Reason: Hand puncture wound; [...] PM 05/10/2018 6:01 PM ADDRESS: [address] [place] [phone] PHYS DOC NOTES: MEDICAL INFORMATION: Prescriptions Given: Prescription Display amoxicillin-clavulana te (Augmentin 875 mg oral tablet) = 1 tab(s), Oral, q12hr, X 7 day(s), # 14 tab(s), Refills(s) 0 PATIENT EDUCATION INFORMATION: Instructions: Puncture Wound Follow up: With: Address: When: GAYLE PETERSQUINTIN [address] [place] [address] Business (1) In 3 days 05/13/2018 Comments: Call tomorrow for recheck appointment. Augmentin as prescribed to help prevent infection keep wound clean and dry may cleanse with peroxide and soap and water. Use hand as tolerated. Follow-up sooner for any concerns of infection fever or chills DIAGNOSIS: 1:Puncture wound of left hand with foreign body Normal [facility] ED Patient Education Noteon 05-10-2018 ED Patient [...] injury, pain, and disability. ? Only take [id number] or prescription medicines for pain, discomfort, or [...] Document Reviewed: 10/05/2011 ExitCare? Patient Information ?2015 [employer], [employer]. This information is not intended to replace advice given to you by your health care provider. Make sure you discuss any questions you have with your health care provider. Normal [facility] ED Patient Summaryon 019 ED Patient Summary [address] [address] Patient Discharge Instructions Person Information Name: BROOKE BISWAS Age: 43 Years Arrival Date: 05/10/2018 4:33 PM Discharge Diagnosis: 1:Puncture wound of left hand with foreign body Primary Care Physician: GAYLE ANDERSON CNP Provider Information Primary Provider: Chago Jaramillo MD Advanced [employer] Ball Assembler:Jovan Mg PA-C The exam and treatment you received in the Emergency Department were for an urgent problem and are not intended as complete care. It is important that you follow up with a doctor, nurse practitioner, or physician?s fire assistant for ongoing care. If your symptoms [...] Follow-up Instructions: With: Address: When: GAYLE PETERSQUINTIN [address] [place] [id number] Business (1) In 3 days 05/13/2018 [...] opioids can be used to help relieve msiwhglz-mx-ubhidj pain and are often prescribed following a [...] be struggling with addiction, tell your health animal care technician and ask for guidance or call [facility]?[employer] National Helpline at 1-316-229-AEWD. v Source: US Department of Health and Human Services/Center for Disease Control & Prevention [facility] Medications Given: Medication Dose Route [...] Comment: Pharmacy Information: Thank you for choosing [facility] Patient Education Materials: Puncture Wound A [...] injury, pain, and disability. ? Only take hqef-wfi-hcnshil or prescription medicines for pain, discomfort, or [...] Document Reviewed: 10/05/2011 ExitCare? Patient Information ?2014 [employer]. This information is not intended to replace advice given to you by your health care provider. Make sure you discuss any questions you have with your health care provider. TRUE Salinas KELLY C , have received the following patient education materials/instruction s and have verbalized understanding: Patient Education Materials: Puncture Wound Follow-up Instructions: With: Address: When: GAYLE ANDERSON [address] [place] [id number] [facility] (1) In 3 days 05/13/2018 Comments: Call tomorrow for recheck appointment. Augmentin as prescribed to help prevent infection keep wound clean and dry may cleanse with peroxide and soap and water. Use hand as tolerated. Follow-up sooner for any concerns of infection fever or chills Prescriptions: [amoxicillin-clavulan ate (Augmentin 875 mg oral tablet)] Patient Signature Date Clinician/Nurse Signature Date 05/10/18 18:01:07 Normal [facility] Vital Signs Date Time Vital Sign Value Performing Clinician Faci lity 06-28-2019 18:59-0500 BMI (Body Mass Index) 33.41 kg/m2 Renee Yen [facility] [place] [place] 06-28-2019 18:59-0500 Body Temperature 98.49 [degF] Renee Reardon [facility] 06-28-2019 18:59-0500 [facility] [place] 06-28-2019 18:59-0500 BP Diastolic 84 mm[Hg] [facility] [place] 06-28-2019 18:59-0500 BP Systolic 143 mm[Hg] [facility] 06-28-2019 18:59-0500 Height 160 cm [facility] 06-28-2019 18:59-0500 Pulse (Heart Rate) 92 /min [facility]e [facility], [place] 06-28-2019 18:59-0500 Pulse Oximetry 95 % [facility] 06-28-2019 18:59-0500 Respiratory Rate 18 /min [facility] [place] Encounters Encounter Date Encounter Type Care Provider [...] End: 09-10-2023 Subsequent hospital visit by physician [facility] Mammography Room [facility] Mammography Comment on above: Other screening mamm ogram Start: 04-16-2020 End: 04-16-2020 Subsequent hospital visit by physician Robert Evans [facility] Laboratory Comment on above: Suspected COVID-19 v irus infection Start: 02-09-2020 End: 02-09-2020 Subsequent hospital visit by physician Robert Evans [facility] Laboratory Comment on above: Encounter for screen ing for HIV; Screening cholesterol level Start: 07-26-2019 End: 07-28-2019 Subsequent hospital visit by physician [facility] Mri Scanner [facility] MRI Comment on above: Achilles tendinitis of left lower extremity Start: 06-28-2019 End: 06-28-2019 Emergency department patient visit Renee Reardon Work Phone: [facility] ED Comment on above: Achilles tendinitis of left lower extremity (Primary Dx) Start: 05-10-2018 End: 05-10-2018 Emergency department patient visit GAYLE ANDERSON Facility:[facility] Procedures Date Procedure Procedure Detail Performing Clinician [...] Detail Author Start: 09-07-2028 Lipid panel Lipids [facility] [employer] Start: 06-20-2028 DTaP/Tdap/Td vaccine (3 - Td or Tdap) DTaP/Tdap/Td vaccine (3 - Td or Tdap) [facility] Start: 2027 Shingles Vaccine (1 of 2) Shingles Vaccine (1 of 2) [place], [place] Start: 02-08-2025 Lipid panel Lipid screen [place], [place] Start: 09-06-2024 Depression Screen [facility] Start: 03-20-2024 End: 03-20-2024 Patient encounter procedure 03/20/2024 3:45 PM EST Office Visit [facility] [address] [place] [phone] Robert Evans MD [address] [place] [address] 6 m check up [facility] Comment on above: 6 m check up Start: 12-01-2023 Influenza vaccination Flu vacc ine (Season Ended) [facility] Start: 02-28-2022 Lipid panel Lipid screen [place], [place] Start: 02-28-2022 Lipid screen Lipid [place] Start: 2022 Screening for malign ant neoplasm of colon [facility] Start: 07-04-2020 End: 07-04-2020 Office Visit 07/04/2020 Office Visit Family Medicine Robert Evans MD [address] [place] [address] [phone] [facility] Start: 01-01-2020 Influenza vaccination Flu vaccine (# 1) [place], [place] Start: 08-02-2019 Pneumococcal 0-64 ye ars Vaccine (1 of 1 - PPSV23) Pneumococcal 0-64 years Vaccine (1 of 1 - PPSV23) [place] Comment on above: Postponed from 02/22 (Patient Refused) Start: 12-31-2018 Influenza vaccination Flu vaccine (# 1) [place] Start: 2017 Diabetes screen Diabetes screen [place], [place] Start: 02-23-2012 Diabetes screen Diabetes screen [facility] Start: 02-23-1996 DTaP/Tdap/Td vaccine (1 - Tdap) DTaP/Tdap/Td vaccine (1 - Tdap) [place] Start: 1995 Hepatitis C screening Hepatitis C sc reen [facility] Start: 02-23-1992 HIV screen HIV screen [place], [place] Start: 02-23-1992 HIV screening HIV screen [place], [place] Start: 02-23-1988 DTaP/Tdap/Td vaccine (1 - Tdap) DTaP/Tdap/Td vaccine (1 - Tdap) [place] Start: 1983 Pneumococcal 0-64 ye ars Vaccine (1 of 1 - PPSV23) Pneumococcal 0-64 years Vaccine (1 of 1 - PPSV23) [place] Start: 1983 Pneumococcal 0-64 ye ars Vaccine (1 of 2 - PCV) Pneumococcal 0-64 years Vaccine (1 of 2 - PCV) [facility] Start: 1977 COVID-19 Vaccine (#1) COVID-19 Vacci ne (#1) [facility] Start: 1977 Hepatitis B vaccine (1 of 3 - 3-dose series) Hepatitis B vaccine (1 of 3 - 3-dose series) [facility] End: 04-16-2020 COVID-19 Ambulatory COVID-19 Ambulatory Lab Routine Suspected Covid-19 Virus Infection 1 Occurrences starting 04/16/2020 until 04/16/2020 [place] Comment on above: 1 Occurrences starti ng 04/16/2020 until 04/16/2020 COVID-19 Ambulatory COVID-19 Amb ulatory Lab Routine Suspected COVID-19 virus infection 04/16/2020 12:09 PM [place] End: 09-08-2023 DBT Breast - bilateral screening [facility] Comment on above: 1 Occurrences starti ng 09/08/2023 until 09/08/2023 End: 06-28-2019 XR FOOT LEFT (MIN 3 VIEWS) XR FOOT LEFT (MIN 3 VIEWS) Imaging Routine Once for 1 Occurrences starting 06/28/2019 until 06/28/2019 [place] Comment on above: Once for 1 Occurrenc es starting 06/28/2019 until 06/28/2019 XR FOOT LEFT (MIN 3 VIEWS) XR FOOT LEFT (MIN 3 VIEWS) Imaging STAT 06/28/2019 7:17 PM [place] Immunizations Immunization Date Immunization Notes Care Provider Mona mcguire 06-20-2018 tetanus toxoid, redu jayde diphtheria toxoid, and acellular pertussis vaccine, adsorbed [facility] Payers Date Payer Category Payer Unknown [id number] 2019 Unknown BCBS BCBS OUT OF STATE xxxxxxxxxxxx 2019-Present [address] [place] [address] xxxxxxxxxxxx [id number] 2019 Unknown BCBS BCBS OUT OF STATE [id number] 2019-Present [address] [place] [address] [id number] 2018 Unknown [id number] 2016 Unknown [employer] [facility] MEDICAID xxxxxxxxxxx 2016-Present [phone] CLAIMS DEPARTMENT [address] [place] [address] xxxxxxxxxxx [id number] 1977 Unknown [id number] 1977 Unknown [id number] 1977 Unknown [id number] 1977 Unknown [id number] 1977 Unknown [id number] 9 1977 Unknown [id number] 9 1977 Unknown [id number] 9 1977 Unknown [id number] 9 1977 Unknown [id number] 9 Social History Date Type Detail Facility Start: 06-28-2019 End: 05-10-2023 Tobacco smoking status NHIS Current every day smoker [employer] History of tobacco use [place] Start: 06-28-2019 End: 11-09-2022 Cigarettes smoked current (pack per day) - Reported [facility] [employer] Start: 06-28-2019 End: 09-09-2023 Alcohol intake Current non-drinker of alcohol (finding) [facility] [employer] [place] Start: 1975 Sex Assigned At Not on file [place], [place] Start: 12-31-2019 End: 05-10-2023 Tobacco use and exposure Never used [place] Start: 11-09-2022 End: 09-09-2023 Tobacco use panel [facility] [employer] How hard is it for y ou to pay for the very basics like food, housing, medical care, and heating Not very hard [employer] Patient Health Questionnaire 9 item (PHQ-9) total score [Reported] 0 [employer] (I/We) worried wheth er (my/our) food would run out before (I/we) got money to buy more. Never true [employer] At any time in the p ast 12 months, were you homeless or living in longterm [including now]? No [employer] Evaluation note Note Date & Type Note Facility Evaluation note Diagnosis Other screening mammogram documented in this encounter [employer] Summary Purpose Family History No Family History Records FoundNo Family History Records FoundNo Family History Records Found Advance Directives No Advanced Directives Records FoundDocuments on File Type Date Recorded Patient Shirt Closer Expl anation Advance Directives and Living Will Power of Chief Cruiser Documents on File Type Date Recorded Patient Shirt Closer Expl anation ACP-Advance Directive ACP-Power of Chief Cruiser Documents on File Type Date Recorded Patient Shirt Closer Expl anation Advance Directives and Living Will Power of Chief Cruiser Reason for Referral Status Reason Specialty Diagnoses / Procedures Referred By Contact Referred To Contact Pending Review Radiology Diagnoses Achilles tendinitis of left lower extremity Procedures MRI ANKLE LEFT WO CONTRAST Renee Khoury DPM [address] [facility], [facility] [place] [address] Specialty Diagnoses / Procedures Referred By Contac t Referred To Contact Radiology Diagnoses Other screening mammogram Procedures DREW GEMINI DIGITAL SCREEN BILATERAL Brooke Wallis, YEAST STACKER - DISPLAY MAKER [address] [place] [address] Referral ID Status Reason Start Date Expiration Date Visits Re quested Visits Authorized [id number] Closed 09/07/2023 09/06/2024 1 1 Assessments Diagnosis [...] through Care Everywhere. * Tendon Injury (Tendinopathy) (Equatorial Guine[place]) documented in this encounter Additional Source Comments INFORMATION SOURCE (unrecogn ized section and content) DATE CREATED AUTHOR 05/21/2018 [facility] DATE CREATED AUTHOR AUTHOR'S ORGANIZ ATION 11/25/2023 [facility] Matthew lagunas DATE CREATED AUTHOR AUTHOR'S ORGANIZ ATION 11/30/2023 [facility] EPIC Reason for Visit (unrecogniz ed section and content) Status Reason Specialty Diagnoses / Procedures Referred By Contact Referred To Contact Closed Radiology Diagnoses Achilles tendinitis, left leg Achilles tendinitis, left leg Procedures HC MRI LOWER EXT JNT W/O CONT LA MRI LOWER EXTREM JT, W/O CONTRAST MRI LOWER EXTREM JT, W/O CONTRAST Renee Khoury DPM [address] [facility], [facility] [place] [address] [facility] [address] [place] [address] Reason Comments Foot Pain States left back of foot pain since 1600 yesterday, states that only thing she thinks she may have done was run yesterday afternoon around 1430; The pain only occurs when she walks; Specialty Diagnoses / Procedures Referred By Heri ag Referred To Contact Radiology Diagnoses Other screening mammogram Procedures DREW GEMINI DIGITAL SCREEN BILATERAL Brooke Wallis, YEAST STACKER - DISPLAY MAKER [address] [place] [address] Referral ID Status Reason Start Date Expiration Date Visits Re quested Visits Authorized [id number] Closed 09/07/2023 09/06/2024 1 1 Care Teams (unrecognized sec tion and content) [employer] Supervisor Relationship Specialty Start Date End Date Mauricio, MD [place] [phone] PCP - General Internal Medicine 12/17/19 FOR [...] BE BASED ON THE PRIMARY CLINICAL RECORDS. [facility]. provides no warranty or guarantee of the accuracy or completeness of information in this document.
--- NOTE | 2023-12-23 13:38 | XR_ITS ---
The [address] [address] Patient Name: MORENA VILLASENOR MRN: [id number] date: 1975 Sex: F Assigned Patient Location: [facility] Current Patient Location: [facility] Accession/Order Number: [id number] Exam Date: 12/23/2023 14:15 Report Date: 12/23/2023 14:30 At the request of: KARENA MAY Procedure: XR chest 2V EXAM: XR chest 2V HISTORY: Preop exam COMPARISON: None. TECHNIQUE: Upright PA and lateral chest FINDINGS: The heart is not enlarged and the vasculature is not distended. No acute infiltrate, effusion or pneumothorax is identified. The osseous structures are grossly intact. XR/XR chest 2V IMPRESSION: No acute infiltrate or evidence of cardiac decompensation. Electronically authenticated by: KARENA GONZALEZ Date: 12/23/2023 14:30
--- NOTE | 2023-12-23 13:38 | ECG_ITS ---
[facility] Test Date: 2023-12-23 Pat Name: MORENA VILLASENOR Department: Room: - Gender: Female Paper Stacker: : 1975 Requested By: KARENA MAY Order Number: [id number] Reading MD: JOSE RAUL MEEKS Measurements Intervals Decker Rate: 76 P: 25 WY: 129 QRS: 73 QRSD: 94 T: 24 QT: 342 QTc: 387 Interpretive Statements SINUS RHYTHM No previous ECG available for comparison Electronically Signed On 12-23-2023 18:11:11 EDT by JOSE RAUL MEEKS
--- NOTE | 2023-12-23 14:11 | PM.PRESUREVA ---
History of Present Illness History of Present Illness Chief complaint: strain of left achillies tendon, spur left Narrative: Patient presents for preadmission testing. Please see HPI from Dr. Jaimes dated December 06, 2023. Review of Systems ROS Narrative Please see ROS from Dr. Jaimes dated December 06, 2023. [facility] Medical History (Updated 12/23/23 @ 14:10 by Ashley Cordova NP) Insomnia ?G47.00 - Insomnia, unspecified (ICD-10) Asthma ?J45.909 - Unspecified asthma, uncomplicated (ICD-10) Kidney stones ?N20.0 - Calculus of kidney (ICD-10) Arrhythmia ?I49.9 - Cardiac arrhythmia, unspecified (ICD-10) Postoperative nausea and vomiting ?R11.2 - Nausea with vomiting, unspecified (ICD-10) ?Z98.890 - Other specified postprocedural states (ICD-10) Stress incontinence ?N39.3 - Stress incontinence (female) (male) (ICD-10) Ankle pain ?M25.579 - Pain in unspecified ankle and joints of unspecified foot (ICD-10) Achilles tendinitis ?M76.60 - Achilles tendinitis, unspecified leg (ICD-10) 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, unspecified (ICD-10) Other enthesopathy of left foot and ankle ?M77.52 - Other enthesopathy of left foot and ankle (ICD-10) GERD (gastroesophageal reflux disease) ?K21.9 - Gastro-esophageal reflux disease without esophagitis (ICD-10) High cholesterol ?E78.00 - Pure hypercholesterolemia, unspecified (ICD-10) Arthritis ?M19.90 - Unspecified osteoarthritis, unspecified site (ICD-10) Calcaneal spur ?M77.30 - Calcaneal spur, unspecified foot (ICD-10) Strain of left Achilles tendon ?S86.012A - Strain of left Achilles tendon, initial encounter (ICD-10) Surgical History (Updated 12/23/23 @ 13:58 by Ashley Cordova NP) History of carpal tunnel release ?Z98.890 - Other specified postprocedural states (ICD-10) H/O midurethral sling procedure ?Z98.890 - Other specified postprocedural states (ICD-10) History of hysterectomy ?Z90.710 - Acquired absence of both cervix and uterus (ICD-10) Family History (Updated 12/23/23 @ 13:58 by Ashley Cordova NP) Other Family history of aneurysm Family history of heart disease Family history of hypertension Family history of myocardial infarction Social History (Updated 12/23/23 @ 13:52 by Ashley Cordova NP) Within the past year, how often did you have a drink containing alcohol: monthly or less Smoking status: Current every day smoker What tobacco products do you use: cigarettes Packs per day: 1 Years smoked: 25 Smoking pack-years: 25.00 Non-prescribed substance use: cannabis (any form) Highest level of school completed/degree received: high school graduate Meds Home Medications and Allergies Home Medications ?Medication ?Instructions ?Recorded ?Confirmed ?Type albuterol sulfate 90 mcg/actuation 2 inh inhalation Q6H PRN shortness 12/23/23 12/23/23 History aerosol inhaler of breath or wheezing diclofenac potassium 50 mg tablet 50 mg PO Q12H 12/23/23 12/23/23 History gabapentin 300 mg capsule 300 mg PO Q8H 12/23/23 12/23/23 History naproxen sodium 220 mg tablet 220 mg PO BID PRN pain 12/23/23 12/23/23 History (Aleve) omeprazole 40 mg capsule,delayed 40 mg PO DAILY 12/23/23 12/23/23 History release simvastatin 20 mg tablet 20 mg PO DAILY 12/23/23 12/23/23 History tramadol 50 mg tablet 50 mg PO Q6H PRN pain 12/23/23 12/23/23 History zolpidem 10 mg tablet 10 mg PO QPM PRN sleep 12/23/23 12/23/23 History Allergies Allergy/AdvReac Type Severity Reaction Status Date / Time hydrocodone Allergy Hives Verified 12/23/23 13:48 lamotrigine [From Lamictal] Allergy Hives Verified 12/23/23 13:48 lurasidone [From Latuda] Allergy Hives Verified 12/23/23 13:48 morphine Allergy Hives Verified 12/23/23 13:48 Exam Narrative Exam Narrative: Constitutional: Awake, alert, comfortable, well-appearing, nontoxic, interactive, vital signs as charted Head: Normocephalic, atraumatic Neck: Supple, normal appearance, normal range of motion, no meningeal signs, no lymphadenopathy Respiratory: No respiratory distress, breath sounds diminished throughout Cardiovascular: Regular rate and rhythm, strong and regular heart tones Neuro: No neurological deficits, normal sensation Psychiatric: Oriented ?3, normal affect Assessment and Plan Assessment and Plan (1) Strain of left Achilles tendon: (2) Calcaneal spur: (3) Other enthesopathy of left foot and ankle: (4) Congenital musculoskeletal deformity: (5) Achilles tendinitis: (6) Ankle pain: Plan Left Achilles tendon repair with excision of calcaneal spur and excision of os trigonum with tendon transfers as needed scheduled with Dr. Jaimes December 29, 2023.
[2023-12-23 15:00] LABS: Anion Gap 12.7; BUN Creatinine Ratio 11.7; Calcium 9.6 mg/dL (8.5-10.1); Carbon Dioxide 26.2 mmol/L (21.0-32.0); Chloride 103 mmol/L (98-107); Estimated GFR (African America >60 (>=60); Estimated GFR (Non-African Ame 58 (>=60); Glucose 137 mg/dL (74-106); Potassium 3.9 mmol/L (3.5-5.1); Sodium 138 mmol/L (136-145)
== END 2023-12-23 13:24 | disposition home or self-care (01) ==
LOC: PST 13:25
PROVIDERS: PCP Internal Medicine; Visit Provider Podiatrist Foot & Ankle Surgery
DX: Z01.810 Encounter for preprocedural cardiovascular examination (principal); Z01.812 Encounter for preprocedural laboratory examination; Z01.818 Encounter for other preprocedural examination; S86.012S Strain of left Achilles tendon, sequela
CPT/HCPCS: 71046; 80048; 93005; G0463

== ENCOUNTER 2023-12-29 07:01 | Day surgery (SDC) | payer BC, SELFPAY ==
[2023-12-23 14:09] VITALS: BP 137/83; PULSE 87; TEMP 37.1; O2SAT 96; BMI 35.8
[2023-12-29] VITALS (14 sets, daily range): BP systolic 112–171; BP diastolic 62–101; PULSE 83–103; TEMP 36.4–36.6; O2SAT 91–99; BMI 35.8
--- OUTSIDE RECORDS SUMMARY | 2023-12-29 07:04 | XMS_ITS | CCD ---
Author Organization [facility] Care Team Providers Care Van Cdl Driver Name Role Phone GAYLE ANDERSON Primary Care Unavailable Chago Jaramillo Admitting Unavailable Chago Jaramillo Attending Unavailable Gayle Anderson Primary Care Provider Robert Evans Primary Care Provider Robert Evans MD Primary Care Provider BROOKE [...] Acetaminophen / HYDROcodone; Translations: [Vicodin] Drug Allergy [facility] (1 source) lamoTRIgine; Translations: [LaMICtal] Drug Allergy [facility] (1 source) lurasidone; Translations: [Latuda] Drug Allergy [facility] (5 sources) Acetaminophen / HYDROcodone Drug Allergy 06-28-2019 [place], [place] (5 sources) lamoTRIgine Drug Allergy 01-06-2017 [...] hours as needed for Pain 0 Active [id number] 200 actuat albuterol 0.09 mg/actuat metered dose [...] Nik Plaza MD 11/23/23 Final result Normal [facility] GEMINI DIGITAL SCREEN HENRY Atwood 09-13-2023 [facility] GEMINI DIGITAL SCREEN BILATERAL HISTORY: Screening. TECHNIQUE: [...] Stephens Jr., MD 09/13/23 Final result Normal [facility] CBC with Diffon 09-08-2023 Abs. Basophil 0.03 k/uL Normal 0.00-0.20 [facility] Comment on above: Performed By: #### C DP, CP, TSH #### [facility] [address] [place] [address] ( Supervisor Waterworks: Alfonzo Swanson MD #### LIPR #### [place] [phone] ( Supervisor Waterworks: Woody Terrell MD Abs.Imm.Granulocyte 0.02 k/uL Normal 0.00-0.30 [facility] Comment on above: Performed By: #### C DP, CP, TSH #### [facility] [address] [place] [phone] ( Supervisor Waterworks: Alfonzo Swanson MD #### LIPR #### [address] [phone] Supervisor Waterworks: Woody Terrell MD Abs.Neutrophil (Seg) 4.76 k/uL Normal 2.5-7.0 [facility] Comment on above: Performed By: #### C DP, CP, TSH #### [facility] [address] [place] [phone] ( Supervisor Waterworks: Alfonzo Swanson MD #### LIPR #### [place] [address] Supervisor Waterworks: Woody Terrell MD Basophils/100 WBC (Bld) 0 % Normal 0-2 [facility] Comment on above: Performed By: #### C DP, CP, TSH #### [facility] [address] [place] [address] Supervisor Waterworks: Alfonzo Swanson MD #### LIPR #### [place] [address] [place], [place] [phone] Supervisor Waterworks: Woody Terrell MD Eosinophils (Bld) [#/Vol] 0.38 10*3/uL Normal 0.00-0.40 [facility] Comment on above: Performed By: #### C DP, CP, TSH #### [facility] [address] [place] [address] Supervisor Waterworks: Alfonzo Swanson MD #### LIPR #### [address] [phone] Supervisor Waterworks: Woody Terrell MD Eosinophils/100 WBC (Bld) 5 % Normal 0-5 [facility] Comment on above: Performed By: #### C DP, CP, TSH #### [facility] [address] [place] [address] Supervisor Waterworks: Alfonzo Swanson MD #### LIPR #### [address] [phone] Supervisor Waterworks: Woody Terrell MD Erythrocyte distribution width (RBC) [Ratio] 12.8 % Normal 12.1-15.2 [facility] Comment on above: Performed By: #### C DP, CP, TSH #### [facility] [address] [place], [place] [phone] Supervisor Waterworks: Alfonzo Swanson MD #### LIPR #### [address] [phone] Supervisor Waterworks: Woody Terrell MD Hematocrit (Bld) [Volume fraction] 44.9 % Normal 36.0-46.0 [facility] Comment on above: Performed By: #### C DP, CP, TSH #### [facility] [address] [place], [place] [phone] Supervisor Waterworks: Alfonzo Swanson MD #### LIPR #### [place] [address] [place], [place] [phone] Supervisor Waterworks: Woody Terrell MD Hemoglobin (Bld) [Mass/Vol] 15.8 g/dL Normal 12.0-16.0 [facility] Comment on above: Performed By: #### C DP, CP, TSH #### [facility] [address] [place] [address] Supervisor Waterworks: Alfonzo Swanson MD #### LIPR #### [place] [address] [place], [place] [phone] Supervisor Waterworks: Woody Terrell MD Immature granulocytes/100 WBC (Bld) 0 % Normal 0-5 [facility] Comment on above: Performed By: #### C DP, CP, TSH #### [facility] [address] [place] [address] Supervisor Waterworks: Alfonzo Swanson MD #### LIPR #### [address] [phone] Supervisor Waterworks: Woody Terrell MD Lymphocytes (Bld) [#/Vol] 2.86 10*3/uL Normal 1.00-4.80 [facility] Comment on above: Performed By: #### C DP, CP, TSH #### [facility] [address] [place] [address] Supervisor Waterworks: Alfonzo Swanson MD #### LIPR #### [address] [phone] Supervisor Waterworks: Woody Terrell MD Lymphocytes/100 WBC (Bld) 34 % Normal 15-40 [facility] Comment on above: Performed By: #### C DP, CP, TSH #### [facility] [address] [place] [address] Supervisor Waterworks: Alfonzo Swanson MD #### LIPR #### [place] [address] [place] [address] Supervisor Waterworks: Woody Terrell MD MCH (RBC) [Entitic mass] 30.2 pg Normal 26.0-34.0 [facility] Comment on above: Performed By: #### C DP, CP, TSH #### [facility] [address] [place] [address] Supervisor Waterworks: Alfonzo Swanson MD #### LIPR #### [place] [phone] Supervisor Waterworks: Woody Terrell MD MCHC (RBC) [Mass/Vol] 35.2 g/dL Normal 31.0-37.0 [facility] Comment on above: Performed By: #### C LYNDSAY CP, TSH #### [facility] [address] [place] [address] Supervisor Waterworks: Alfonzo Swanson MD #### LIPR #### [place] [phone] Supervisor Waterworks: Woody Terrell MD MCV (RBC) [Entitic vol] 85.7 fL Normal 80.0-100.0 [facility] Comment on above: Performed By: #### C DP, CP, TSH #### [facility] [address] [place] [address] Supervisor Waterworks: Alfonzo Swanson MD #### LIPR #### [place] [phone] Supervisor Waterworks: Woody Terrell MD Monocytes (Bld) [#/Vol] 0.40 10*3/uL Normal 0.00-1.00 [facility] Comment on above: Performed By: #### C DP, CP, TSH #### [facility] [address] [place], [place] [phone] Supervisor Waterworks: Alfonzo Swanson MD #### LIPR #### [place] [address] [place], [place] [phone] Supervisor Waterworks: Woody Terrell MD Monocytes/100 WBC (Bld) 5 % Normal 4-8 [facility] Comment on above: Performed By: #### C DP, CP, TSH #### [facility] [address] [place], [place] [phone] Supervisor Waterworks: Alfonzo Swanson MD #### LIPR #### [address] [phone] Supervisor Waterworks: Woody Terrell MD Neutrophil (Seg) 56 % Normal 47-75 [facility] Comment on above: Performed By: #### C DP, CP, TSH #### [facility] [address] [place] [phone] Supervisor Waterworks: Alfonzo Swanson MD #### LIPR #### [address] [address] Supervisor Waterworks: Woody Terrell MD Platelet mean volume (Bld) [Entitic vol] 10.7 fL Normal 6.0-12.0 [facility] Comment on above: Performed By: #### C DP, CP, TSH #### [facility] [address] [place], [place] [phone] Supervisor Waterworks: Alfonzo Swanson MD #### LIPR #### [address] [phone] Supervisor Waterworks: Woody Terrell MD Platelets (Bld) [#/Vol] 274 10*3/uL Normal 140-450 [facility] Comment on above: Performed By: #### C DP, CP, TSH #### [facility] [address] [place] [phone] Supervisor Waterworks: Alfonzo Swanson MD #### LIPR #### [place] [address] [place], [place] [phone] Supervisor Waterworks: Woody Terrell MD RBC (Bld) [#/Vol] 5.24 10*6/uL High 4.00-5.20 [facility] Comment on above: Performed By: #### C DP, CP, TSH #### [facility] [address] [place] [address] Supervisor Waterworks: Alfonzo Swanson MD #### LIPR #### [address] [phone] Supervisor Waterworks: Woody Terrell MD WBC (Bld) [#/Vol] 8.5 10*3/uL Normal 3.5-11.0 [facility] Comment on above: Performed By: #### C LYNDSAY CP, TSH #### [facility] [address] [place] [phone] ( Supervisor Waterworks: Alfonzo Swanson MD #### LIPR #### [place] [address] Supervisor Waterworks: Woody Terrell MD Comp Metabolic Profon 2023 Albumin [Mass/Vol] 4.2 g/dL Normal 3.5-5.2 [facility] Comment on above: Performed By: #### C DP CP, TSH #### [facility] [address] [place] [address] Supervisor Waterworks: Alfonzo Swanson MD #### LIPR #### [address] [address] Supervisor Waterworks: Woody Terrell MD Alkaline Phos 71 U/L Normal 35-104 [facility] Comment on above: Performed By: #### C DP, CP, TSH #### [facility] [address] [place], [place] [phone] Supervisor Waterworks: Alfonzo Swanson MD #### LIPR #### [facility] [address] [place], [place] [phone] Supervisor Waterworks: Woody Terrell MD ALT [Catalytic activity/Vol] 27 U/L Normal 5-33 [facility] Comment on above: Performed By: #### C DP, CP, TSH #### [facility] [address] [place], [place] [phone] Supervisor Waterworks: Alfonzo Swanson MD #### LIPR #### [place] [address] [place], [place] [phone] Supervisor Waterworks: Woody Terrell MD Anion gap [Moles/Vol] 14 mmol/L Normal 9-17 [facility] Comment on above: Performed By: #### C DP, CP, TSH #### [facility] [address] [place], [place] [phone] Supervisor Waterworks: Alfonzo Swanson MD #### LIPR #### [address] [phone] Supervisor Waterworks: oWody Terrell MD AST [Catalytic activity/Vol] 21 U/L Normal <32 [facility] Comment on above: Performed By: #### C DP, CP, TSH #### [facility] [address] [place], [place] [phone] Supervisor Waterworks: Alfonzo Swanson MD #### LIPR #### [facility] [address] [place] [address] [phone] Supervisor Waterworks: Woody Terrell MD Bilirubin [Mass/Vol] 0.3 mg/dL Normal 0.3-1.2 [facility] Comment on above: Performed By: #### C DP, CP, TSH #### [facility] [address] [place], [place] [phone] Supervisor Waterworks: Alfonzo Swanson MD #### LIPR #### [facility] [address] [place] [address] Supervisor Waterworks: Woody Terrell MD BUN/CRE Ratio 14 Normal 9-20 [facility] Comment on above: Performed By: #### C DP, CP, TSH #### [facility] [address] [place] [address] Supervisor Waterworks: Alfonzo Swanson MD #### LIPR #### [facility] [address] [place] [address] Supervisor Waterworks: Woody Terrell MD Calcium [Mass/Vol] 9.1 mg/dL Normal 8.6-10.4 [facility] Comment on above: Performed By: #### C DP, CP, TSH #### [facility] [address] [place] [address] Supervisor Waterworks: Alfonzo Swanson MD #### LIPR #### [facility] [address] [place] [address] Supervisor Waterworks: Woody Terrell MD Chloride [Moles/Vol] 103 mmol/L Normal 98-107 [facility] Comment on above: Performed By: #### C DP, CP, TSH #### [facility] [address] [place] [address] Supervisor Waterworks: Alfonzo Swanson MD #### LIPR #### [facility] [address] [place] [address] Supervisor Waterworks: Woody Terrell MD CO2 [Moles/Vol] 20 mmol/L Normal 20-31 [facility] Comment on above: Performed By: #### C DP, CP, TSH #### [facility] [address] [place] [address] Supervisor Waterworks: Alfonzo Swanson MD #### LIPR #### [facility] [address] [place] [address] Supervisor Waterworks: Woody Terrell MD Creatinine [Mass/Vol] 0.8 mg/dL Normal 0.5-0.9 [facility] Comment on above: Performed By: #### C TEJAL UMANA, TSH #### [facility] [address] [place], [place] [phone] Supervisor Waterworks: Alfonzo Swanson MD #### LIPR #### [place] [address] [place], [place] 1939508 Supervisor Waterworks: Woody Terrell MD GFR/1.73 sq M.predicted among non-blacks MDRD (S/P/Bld) [Vol rate/Area] mL/min/{1.73_m2} Normal >60 [facility] Comment on above: Result Comment: These results [...] By: #### C TEJAL UMANA, TSH #### [facility] [address] [place], [place] [phone] Supervisor Waterworks: Alfonzo Swanson MD #### LIPR #### [place] [address] [place], [place] [phone] Supervisor Waterworks: Woody Terrell MD Glucose [Mass/Vol] 102 mg/dL High 70-99 [facility] Comment on above: Performed By: #### C TEJAL UMANA, TSH #### [facility] [address] [place], [place] [phone] Supervisor Waterworks: Alfonzo Swanson MD #### LIPR #### [facility] [address] [place] [address] [phone] Supervisor Waterworks: Woody Terrell MD Potassium [Moles/Vol] 3.8 mmol/L Normal 3.7-5.3 [facility] Comment on above: Performed By: #### C DP, CP, TSH #### [facility] [address] [place], [place] [phone] Supervisor Waterworks: Alfonzo Swanson MD #### LIPR #### [address] [address] Supervisor Waterworks: Woody Terrell MD Protein [Mass/Vol] 7.0 g/dL Normal 6.4-8.3 [facility] Comment on above: Performed By: #### C DP, CP, TSH #### [facility] [address] [place], [place] [phone] Supervisor Waterworks: Alfonzo Swanson MD #### LIPR #### [address] [phone] Supervisor Waterworks: Woody Terrell MD Sodium [Moles/Vol] 137 mmol/L Normal 135-144 [facility] Comment on above: Performed By: #### C DP, CP, TSH #### [facility] [address] [place], [place] [phone] Supervisor Waterworks: Alfonzo Swanson MD #### LIPR #### [address] [address] Supervisor Waterworks: Woody Terrell MD Urea nitrogen [Mass/Vol] 11 mg/dL Normal 6-20 [facility] Comment on above: Performed By: #### C DP, CP, TSH #### [facility] [address] [place], [place] [phone] Supervisor Waterworks: Alfonzo Swanson MD #### LIPR #### [address] [address] Supervisor Waterworks: Woody Terrell MD Lipid Profileon 09-08-2023 Cholesterol [Mass/Vol] 277 mg/dL High 0-199 [facility] Comment on above: Result Comment: Cholesterol Guidelines: <200 Desirable 200-240 Borderline >240 Undesirable Performed By: #### C DP, CP, TSH #### [facility] [address] [place] [address] Supervisor Waterworks: Alfonzo Swanson MD #### LIPR #### [facility] [address] [place] [address] Supervisor Waterworks: Woody Terrell MD Cholesterol in HDL [Mass/Vol] 35 mg/dL Low >40 [facility] Comment on above: Result Comment: HDL Guidelines: <40 Undesirable 40-59 Borderline >59 Desirable Performed By: #### C DP, CP, TSH #### [facility] [address] [place], [place] [phone] Supervisor Waterworks: Alfonzo Swanson MD #### LIPR #### [address] [address] Supervisor Waterworks: Woody Terrell MD Cholesterol in LDL [Mass/Vol] 169 mg/dL High 0-100 [facility] Comment on above: Result Comment: LDL Guidelines: <100 Desirable 100-129 Near to/above Desirable 130-159 Borderline >159 Undesirable Direct (measured) LDL and calculated LDL are not interchangeable tests. Performed By: #### C DP, CP, TSH #### [facility] [address] [place] [address] Supervisor Waterworks: Alfonzo Swanson MD #### LIPR #### [facility] [address] [place] [address] Supervisor Waterworks: Woody Terrell MD Cholesterol in VLDL [Mass/Vol] 72 mg/dL Normal [facility] Comment on above: Performed By: #### C DP, CP, TSH #### [facility] [address] [place] [address] Supervisor Waterworks: Alfonzo Swanson MD #### LIPR #### [facility] [address] [place] [address] Supervisor Waterworks: Woody Terrell MD Cholesterol.total/Ch olesterol in HDL [Mass ratio] 8.0 {ratio} Normal [facility] Comment on above: Performed By: #### C TEJAL UMANA, TSH #### [facility] [address] [place], [place] [phone] Supervisor Waterworks: Alfonzo Swanson MD #### LIPR #### [address] [phone] Supervisor Waterworks: Woody Terrell MD Triglyceride [Mass/Vol] 362 mg/dL High <150 [facility] Comment on above: Result Comment: Triglyceride Guidelines: <150 Desirable 150-199 Borderline 200-499 High >499 Very high Based on AHA Guidelines for fasting triglyceride, January 2012. Performed By: #### C TEJAL UMANA, TSH #### [facility] [address] [place], [place] [phone] Supervisor Waterworks: Alfonzo Swanson MD #### LIPR #### [place] [address] [place], [place] [phone] Supervisor Waterworks: Woody Terrell MD Thyroid Stim. Horm.on 2023 Thyroid Stim. Horm. 2.41 uIU/mL Normal 0.30-5.00 [facility] Comment on above: Performed By: #### C TEJAL UMANA, TSH #### [facility] [address] [place], [place] [phone] Supervisor Waterworks: Alfonzo Swanson MD #### LIPR #### [place] [address] [place], [place] [phone] Supervisor Waterworks: Woody Terrell MD Comprehensive Metabolic Pane ramona 02-09-2020 Albumin [Mass/Vol] 5 g/dL 3.5 - 5.2 g/dL [place], [place] Albumin/Globulin [Mass ratio] NOT REPORTED [place] ALP [Catalytic activity/Vol] 64 U/L 35 - 104 U/L [place] ALT [Catalytic activity/Vol] 40 U/L High 5 - 33 U/L [place] Anion gap [Moles/Vol] 11 mmol/L 9 - 17 mmol/L [place] AST [Catalytic activity/Vol] 29 U/L <32 [place] Bilirubin Ql (U) 0.46 mg/dL 0.3 - 1.2 mg/dL [place], [place] Bun/Cre Ratio 14 [place], [place] Calcium [Mass/Vol] 9.9 mg/dL 8.6 - 10.4 mg/dL [place] Chloride [Moles/Vol] 102 mmol/L 98 - 107 mmol/L [place] CO2 [Moles/Vol] 24 mmol/L 20 - 31 mmol/L [place] Creatinine [Mass/Vol] 1.03 mg/dL High 0.5 - 0.9 mg/dL [place] GFR >60 >60 mL/min [place], [place] GFR Non- 59 mL/min Low >60 [place] GFR/1.73 sq M predicted among non-blacks MDRD (S/P/Bld) [Vol rate/Area] NOT REPORTED [place] GFR/1.73 sq M predicted among non-blacks MDRD (S/P/Bld) [Vol rate/Area] [place] Comment on above: Average GFR for 40-4 9 years old: 99 mL/min/1.73sq m Chronic Kidney Disease: <60 mL/min/1.73sq m Kidney failure: <15 mL/min/1.73sq m eGFR calculated using average adult body mass. Additional eGFR calculator available at: http://www.MeetDoctor.[employer]/multiple_crcl_2012.htm Glucose [Mass/Vol] 106 mg/dL High 70 - 99 mg/dL [place], [place] Interpretation and review of laboratory results Abnormal [place] Potassium [Moles/Vol] 4.3 mmol/L 3.7 - 5.3 mmol/L [place] Protein [Mass/Vol] 7.8 g/dL 6.4 - 8.3 g/dL [place], [place] Sodium [Moles/Vol] 137 mmol/L 135 - 144 mmol/L [place] Urea nitrogen [Mass/Vol] 14 mg/dL 6 - 20 mg/dL [place] HIV Screenon 02-09-2020 HIV Ag/Ab NONREACTIVE NONREACTIVE [place], [place] Comment on above: No laboratory eviden ce of HIV infection. If acute HIV infection is suspected, consider testing for HIV-1 RNA. Lipid Panelon 02-09-2020 Cholesterol [Mass/Vol] 238 mg/dL High <200 [place] Comment on above: Cholesterol Guidelines: <200 Desirable 200-240 Borderline >240 Undesirable Cholesterol in HDL [Mass/Vol] 28 mg/dL Low >40 [place] Comment on above: HDL Guidelines: <40 Undesirable 40-59 Borderline >59 Desirable Cholesterol in LDL [Mass/Vol] 146 mg/dL High 0 - 130 mg/dL [place] Comment on above: LDL Guidelines: <100 Desirable 100-129 Near to/above Desirable 130-159 Borderline >159 Undesirable Direct (measured) LDL and calculated LDL are not interchangeable tests. Cholesterol in VLDL [Mass/Vol] NOT REPORTED High 1 - 30 mg/dL [place] Cholesterol.total/Ch olesterol in HDL [Mass ratio] 8.5 {ratio} High <5 [place] Interpretation and review of laboratory results Abnormal [place] Triglyceride [Mass/Vol] 322 mg/dL High <150 [place] Comment on above: Triglyceride Guidelines: <150 Desirable 150-199 Borderline 200-499 High >499 Very high Based on AHA Guidelines for fasting triglyceride, January 2012. Patient Fasting?on 0 Patient Fasting? YES [place], [place] MRI ANKLE LEFT WO CONTRASTon 07-26-2019 [...] 5. Small posterior facet subtalar joint effusion. [place] CLINICAL HISTORY: Left ankle Achilles tendinopathy [...] lateral and medial ankle ligaments appear intact. [place], [place] Mario, [facility] Incoming Radiant Results From [facility] - 07/26/2019 11:47 AM EDT CLINICAL HISTORY: [...] 5. Small posterior facet subtalar joint effusion. [place], [place] Coding Summary.on 05-16-2018 Coding Summary. CODING DATE: 05/16/2018 [facility] STATUS: Home ([facility]) PAYOR: Medicaid EAPG DESCRIPTION [id number] [...] Revised Date Saved: 05/16/2018 11:47 am Normal [facility] ED Note-Physicianon 05-11-19 ED Note-Physician Basic [...] Appropriate mood & affect. Integumentary: Warm, Dry, [place] Procedure Patient left hand was prepped and [...] In 3 days 05/13/2018 [place] [address]- Business (1) Additional Instructions: Call tomorrow for [...] made to ensure accuracy, however, inadvertently computerized hydroelectric production technician mistakes may be present. Patient was treated and evaluated by the physician ward assistant. The attending physician was in the [...] ulnar palm Read By: Jovan Mg PA-C [facility] Comment on above: Result Comment: Elec tronically [...] MD Transcribed by: nette Technologist: BEBA Roca [facility] XR Hand 3+ Views Lefton 05-02 [...] MD Transcribed by: nette Technologist: BEBA Roca [facility] ED Clinical Summaryon 2018 ED Clinical Summary [place] [id number] ED Clinical Summary Person Information Name: BROOKE BISWAS [facility] Age: 43 Years : 1975 12:00 AM Sex: Female Language: Turkish PCP: GAYLE ANDERSON CNP Marital Status: Phone: [phone] Visit Id: Visit Reason: Hand puncture wound; [...] PM 05/10/2018 6:01 PM ADDRESS: [address] [place] [id number] PHYS DOC NOTES: MEDICAL INFORMATION: Prescriptions Given: Prescription Display amoxicillin-clavulana te (Augmentin 875 mg oral tablet) = 1 tab(s), Oral, q12hr, X 7 day(s), # 14 tab(s), Refills(s) 0 PATIENT EDUCATION INFORMATION: Instructions: Puncture Wound Follow up: With: Address: When: GAYLE PETERSQUINTIN [address] [place] [address] Business (1) In 3 days 05/13/2018 Comments: Call tomorrow for recheck appointment. Augmentin as prescribed to help prevent infection keep wound clean and dry may cleanse with peroxide and soap and water. Use hand as tolerated. Follow-up sooner for any concerns of infection fever or chills DIAGNOSIS: 1:Puncture wound of left hand with foreign body Normal [facility] ED Patient Education Noteon 05-10-2018 ED [...] injury, pain, and disability. ? Only take [id number] or prescription medicines for pain, discomfort, or [...] Document Reviewed: 10/05/2011 ExitCare? Patient Information ?2015 [employer], [employer]. This information is not intended to replace advice given to you by your health care provider. Make sure you discuss any questions you have with your health care provider. Normal [facility] ED Patient Summaryon 019 ED Patient Summary [address] [address] Patient Discharge Instructions Person Information Name: BROOKE BISWAS Age: 43 Years Arrival Date: 05/10/2018 4:33 PM Discharge Diagnosis: 1:Puncture wound of left hand with foreign body Primary Care Physician: GYALE ANDERSON CNP Provider Information Primary Provider: Chago Jaramillo MD [employer] Assistant:Jovan Mg PA-C The exam and treatment you received in the Emergency Department were for an urgent problem and are not intended as complete care. It is important that you follow up with a doctor, nurse practitioner, or physician?s ward assistant for ongoing care. If your symptoms [...] Follow-up Instructions: With: Address: When: GAYLE PETERSQUINTIN [address] [place] [id number] Business (1) In 3 days 05/13/2018 [...] opioids can be used to help relieve sulbkbhw-yk-xcbeyk pain and are often prescribed following a [...] be struggling with addiction, tell your health cardiac care nurse and ask for guidance or call [facility]?Emma National Helpline at 0-200-935-KJBM. v Source: US Department of Health and Human Services/Center for Disease Control & Prevention [facility] Medications Given: Medication Dose Route [...] Comment: Pharmacy Information: Thank you for choosing [facility] Patient Education Materials: Puncture Wound A puncture [...] injury, pain, and disability. ? Only take vyai-lvk-nnywalc or prescription medicines for pain, discomfort, or [...] Document Reviewed: 10/05/2011 ExitCare? Patient Information ?2014 videoNEXT. This information is not intended to replace advice given to you by your health care provider. Make sure you discuss any questions you have with your health care provider. TRUE [place] KELLY C , have received the following patient education materials/instruction s and have verbalized understanding: Patient Education Materials: Puncture Wound Follow-up Instructions: With: Address: When: GAYLE ANDERSON [address] [place] [id number] [facility] (1) In 3 days 05/13/2018 Comments: Call tomorrow for recheck appointment. Augmentin as prescribed to help prevent infection keep wound clean and dry may cleanse with peroxide and soap and water. Use hand as tolerated. Follow-up sooner for any concerns of infection fever or chills Prescriptions: [amoxicillin-clavulan ate (Augmentin 875 mg oral tablet)] Patient Signature Date Clinician/Nurse Signature Date 05/10/18 18:01:07 Normal [facility] Vital Signs Date Time Vital Sign Value Performing Clinician Faci lity 06-28-2019 18:59-0500 BMI (Body Mass Index) 33.41 kg/m2 Renee Yen [facility] [place], [place] 06-28-2019 18:59-0500 Body Temperature 98.49 [degF] Renee Reardon [facility], [place] 06-28-2019 18:59-0500 Body [facility], [place] 06-28-2019 18:59-0500 BP Diastolic 84 mm[Hg] [facility], [place] 06-28-2019 18:59-0500 BP Systolic 143 mm[Hg] [facility], [place] 06-28-2019 18:59-0500 Height 160 cm [facility], [place] 06-28-2019 18:59-0500 Pulse (Heart Rate) 92 /min [facility], [place] 06-28-2019 18:59-0500 Pulse Oximetry 95 % [facility], [place] 06-28-2019 18:59-0500 Respiratory Rate 18 /min [facility], [place] Encounters Encounter Date Encounter Type Care Provider [...] End: 09-10-2023 Subsequent hospital visit by physician [facility] Mammography Room [facility] Mammography Comment on above: Other screening mamm ogram Start: 04-16-2020 End: 04-16-2020 Subsequent hospital visit by physician Robert Evans [facility] Laboratory Comment on above: Suspected COVID-19 v irus infection Start: 02-09-2020 End: 02-09-2020 Subsequent hospital visit by physician Robert Evans [facility] Laboratory Comment on above: Encounter for screen ing for HIV; Screening cholesterol level Start: 07-26-2019 End: 07-28-2019 Subsequent hospital visit by physician [facility] Mri Scanner [facility] MRI Comment on above: Achilles tendinitis of left lower extremity Start: 06-28-2019 End: 06-28-2019 Emergency department patient visit Renee Reardon Work Phone: [facility] ED Comment on above: Achilles tendinitis of left lower extremity (Primary Dx) Start: 05-10-2018 End: 05-10-2018 Emergency department patient visit GAYLE ANDERSON Facility:[facility] Procedures Date Procedure Procedure Detail Performing Clinician [...] Detail Author Start: 09-07-2028 Lipid panel Lipids [facility] [employer] Start: 06-20-2028 DTaP/Tdap/Td vaccine (3 - Td or Tdap) DTaP/Tdap/Td vaccine (3 - Td or Tdap) [facility] Start: 2027 Shingles Vaccine (1 of 2) Shingles Vaccine (1 of 2) [place], [place] Start: 02-08-2025 Lipid panel Lipid screen [place], [place] Start: 09-06-2024 Depression Screen Depression Screen [facility] Start: 03-20-2024 End: 03-20-2024 Patient encounter procedure 03/20/2024 3:45 PM EST Office Visit [facility] [address] [place] [id number] Robert Evans MD [address] [place] [address] 6 m check up [facility] Comment on above: 6 m check up Start: 12-01-2023 Influenza vaccination Flu vacc ine (Season Ended) [facility] Start: 02-28-2022 Lipid panel Lipid screen [place], [place] Start: 02-28-2022 Lipid screen Lipid screen [place] Start: 2022 Screening for malign ant neoplasm of colon [facility] Start: 07-04-2020 End: 07-04-2020 Office Visit 07/04/2020 Office Visit Family Medicine Robert Evans MD [address] [place] [address] [phone] [facility] Start: 01-01-2020 Influenza vaccination Flu vaccine (# 1) [place], [place] Start: 08-02-2019 Pneumococcal 0-64 ye ars Vaccine (1 of 1 - PPSV23) Pneumococcal 0-64 years Vaccine (1 of 1 - PPSV23) [place], [place] Comment on above: Postponed from 02/22 (Patient Refused) Start: 12-31-2018 Influenza vaccination Flu vaccine (# 1) [place], [place] Start: 2017 Diabetes screen Diabetes screen [place], [place] Start: 02-23-2012 Diabetes screen Diabetes screen [facility] Start: 02-23-1996 DTaP/Tdap/Td vaccine (1 - Tdap) DTaP/Tdap/Td vaccine (1 - Tdap) [place], [place] Start: 1995 Hepatitis C screening Hepatitis C sc reen [facility] Start: 02-23-1992 HIV screen HIV screen [place], [place] Start: 02-23-1992 HIV screening HIV screen [place], [place] Start: 02-23-1988 DTaP/Tdap/Td vaccine (1 - Tdap) DTaP/Tdap/Td vaccine (1 - Tdap) [place] Start: 1983 Pneumococcal 0-64 ye ars Vaccine (1 of 1 - PPSV23) Pneumococcal 0-64 years Vaccine (1 of 1 - PPSV23) [place], [place] Start: 1983 Pneumococcal 0-64 ye ars Vaccine (1 of 2 - PCV) Pneumococcal 0-64 years Vaccine (1 of 2 - PCV) [facility] Start: 1977 COVID-19 Vaccine (#1) COVID-19 Vacci ne (#1) [facility] Start: 1977 Hepatitis B vaccine (1 of 3 - 3-dose series) Hepatitis B vaccine (1 of 3 - 3-dose series) [facility] End: 04-16-2020 COVID-19 Ambulatory COVID-19 Ambulatory Lab Routine Suspected Covid-19 Virus Infection 1 Occurrences starting 04/16/2020 until 04/16/2020 [place], [place] Comment on above: 1 Occurrences starti ng 04/16/2020 until 04/16/2020 COVID-19 Ambulatory COVID-19 Amb ulatory Lab Routine Suspected COVID-19 virus infection 04/16/2020 12:09 PM [place] End: 09-08-2023 DBT Breast - bilateral screening [facility] Comment on above: 1 Occurrences starti ng 09/08/2023 until 09/08/2023 End: 06-28-2019 XR FOOT LEFT (MIN 3 VIEWS) XR FOOT LEFT (MIN 3 VIEWS) Imaging Routine Once for 1 Occurrences starting 06/28/2019 until 06/28/2019 [place], [place] Comment on above: Once for 1 Occurrenc es starting 06/28/2019 until 06/28/2019 XR FOOT LEFT (MIN 3 VIEWS) XR FOOT LEFT (MIN 3 VIEWS) Imaging STAT 06/28/2019 7:17 PM [place] Immunizations Immunization Date Immunization Notes Care Provider Mona mcguire 06-20-2018 tetanus toxoid, redu jayde diphtheria toxoid, and acellular pertussis vaccine, adsorbed [facility] Payers Date Payer Category Payer Unknown [id number] 2019 Unknown BCBS BCBS OUT OF STATE xxxxxxxxxxxx 2019-Present [address] [place] [address] xxxxxxxxxxxx [id number] 2019 Unknown BCBS BCBS OUT OF STATE [id number] 2019-Present [address] [place] [address] [id number] 2018 Unknown [id number] 2016 Unknown [employer] [facility] MEDICAID xxxxxxxxxxx 2016-Present [phone] CLAIMS DEPARTMENT [address] [place] [address] xxxxxxxxxxx [id number] 1977 Unknown [id number] 1977 Unknown [id number] 1977 Unknown [id number] 1977 Unknown [id number] 1977 Unknown [id number] 9 1977 Unknown [id number] 9 1977 Unknown [id number] 9 1977 Unknown [id number] 9 1977 Unknown [id number] 9 Social History Date Type Detail Facility Start: 06-28-2019 End: 05-10-2023 Tobacco smoking status NHIS Current every day smoker [facility] History of tobacco use [place]ig[place] Start: 06-28-2019 End: 11-09-2022 Cigarettes smoked current (pack per day) - Reported [facility] [employer] Start: 06-28-2019 End: 09-09-2023 Alcohol intake Current non-drinker of alcohol (finding) [facility] [place] Start: 1975 Sex Assigned At Not on file [place] Start: 12-31-2019 End: 05-10-2023 Tobacco use and exposure Never used [employer] [place] Start: 11-09-2022 End: 09-09-2023 Tobacco use panel [facility] [employer] How hard is it for y ou to pay for the very basics like food, housing, medical care, and heating Not very hard [facility] Patient Health Questionnaire 9 item (PHQ-9) total score [Reported] 0 [facility] (I/We) worried wheth er (my/our) food would run out before (I/we) got money to buy more. Never true [facility] At any time in the p ast 12 months, were you homeless or living in long term [including now]? No [facility] Evaluation note Note Date & Type Note Facility Evaluation note Diagnosis Other screening mammogram documented in this encounter [facility] Summary Purpose Family History No Family History Records FoundNo Family History Records FoundNo Family History Records Found Advance Directives No Advanced Directives Records FoundDocuments on File Type Date Recorded Patient Pain Coordinator Expl anation Advance Directives and Living Will Power of Hospital Cleaner Documents on File Type Date Recorded Patient Pain Coordinator Expl anation ACP-Advance Directive ACP-Power of Hospital Cleaner Documents on File Type Date Recorded Patient Pain Coordinator Expl anation Advance Directives and Living Will Power of Hospital Cleaner Reason for Referral Status Reason Specialty Diagnoses / Procedures Referred By Contact Referred To Contact Pending Review Radiology Diagnoses Achilles tendinitis of left lower extremity Procedures MRI ANKLE LEFT WO CONTRAST Renee Khoury DPM [address] [facility] [place] [address] Specialty Diagnoses / Procedures Referred By Contac t Referred To Contact Radiology Diagnoses Other screening mammogram Procedures DREW GEMINI DIGITAL SCREEN BILATERAL Brooke Wallis, GEOSPATIAL EXTRACTOR ANALYSIS - VICE PRESIDENT OF PRODUCT MARKETING [address] [place] [address] Referral ID Status Reason Start Date Expiration Date Visits Re quested Visits Authorized [id number] Closed 09/07/2023 09/06/2024 1 1 Assessments Diagnosis [...] through Care Everywhere. * Tendon Injury (Tendinopathy) (Turkish) documented in this encounter Additional Source Comments INFORMATION SOURCE (unrecogn ized section and content) DATE CREATED AUTHOR 05/21/2018 [facility] DATE CREATED AUTHOR AUTHOR'S ORGANIZ ATION 11/25/2023 [facility] Matthew lagunas DATE CREATED AUTHOR AUTHOR'S ORGANIZ ATION 11/30/2023 [facility] EPIC Reason for Visit (unrecogniz ed section and content) Status Reason Specialty Diagnoses / Procedures Referred By Contact Referred To Contact Closed Radiology Diagnoses Achilles tendinitis, left leg Achilles tendinitis, left leg Procedures HC MRI LOWER EXT JNT W/O CONT NV MRI LOWER EXTREM JT, W/O CONTRAST MRI LOWER EXTREM JT, W/O CONTRAST Renee Khoury DPM [address] [facility] [place] [address] [facility] [address] [place] [address] Reason Comments Foot Pain States left back of foot pain since 1600 yesterday, states that only thing she thinks she may have done was run yesterday afternoon around 1430; The pain only occurs when she walks; Specialty Diagnoses / Procedures Referred By Heri ag Referred To Contact Radiology Diagnoses Other screening mammogram Procedures DREW GEMINI DIGITAL SCREEN BILATERAL Brooke Wallis, GEOSPATIAL EXTRACTOR ANALYSIS - VICE PRESIDENT OF PRODUCT MARKETING [address] [place] [address] Referral ID Status Reason Start Date Expiration Date Visits Re quested Visits Authorized [id number] Closed 09/07/2023 09/06/2024 1 1 Care Teams (unrecognized sec tion and content) Van Cdl Driver Relationship Specialty Start Date End Date Mauricio, MD [place] [phone] PCP - General Internal Medicine 12/17/19 FOR [...] BE BASED ON THE PRIMARY CLINICAL RECORDS. [facility]. provides no warranty or guarantee of the accuracy or completeness of information in this document.
[2023-12-29 07:23] LABS: Basophils Percent Auto 0.3 % (0.2-2.0); Eosinophils Absolute Auto 0.3 10^3/uL (0.0-0.7); Eosinophils Percent Auto 2.9 % (0.9-7.0); Hematocrit 50.5 % (36.0-48.0); Hemoglobin 17.5 g/dL (12.0-16.0); Immature Granulocytes Abs Auto 0.03 10^3/uL (0.00-0.03); Immature Granulocytes Pct Auto 0.3 % (0.0-0.5); Lymphocytes Absolute Auto 3.1 10^3/uL (1.2-3.8); Lymphocytes Percent Auto 31.2 % (20.5-60.0); Mean Corpuscular HGB Conc 34.7 g/dL (29.9-35.2); Mean Corpuscular Hemoglobin 30.5 pg (26.7-34.0); Mean Platelet Volume 11.4 fL (9.5-13.5); Monocytes Absolute Auto 0.6 10^3/uL (0.3-0.8); Monocytes Percent Auto 6.2 % (1.7-12.0); Neutrophils Percent Auto 59.1 % (43.0-75.0); Platelet Count 257 10^3/uL (150-450); Red Blood Count 5.74 10^6/uL (4.20-5.40); Red Cell Distribution Width 12.3 % (11.0-15.0); White Blood Count 10.1 10^3/uL (4.0-11.0)
[2023-12-29 07:31] LABS: Glucometer 123 mg/dL (74-106)
[2023-12-29] MEDS: LACTATED RINGER'S SOLUTION 1,000 ML 50 ML IV ×2 (07:57→11:04)
[2023-12-29] MEDS: SCOPOLAMINE 1 MG/3 DAYS TRANSDERM PATCH 1 PATCH TD (08:12)
[2023-12-29] MEDS: CEFAZOLIN SODIUM 2 GM/50 ML D5W PREMIX IV (09:47)
--- NOTE | 2023-12-29 09:49 | XR_ITS ---
The [address] [address] Patient Name: MORENA VILLASENOR MRN: [id number] date: 1975 Sex: F Assigned Patient Location: [facility] Current Patient Location: Accession/Order Number: [id number] Exam Date: 12/29/2023 11:55 Report Date: 01/01/2024 07:51 At the request of: KARENA MAY Procedure: XR foot LT min 3V PROCEDURE: XR foot LT min 3V COMPARISON: 12/06/2023 HISTORY: Achilles tendinitis, calcaneal spur, os trigonum FINDINGS: BONES:Interval resection of the enthesopathic spur along the Achilles insertion of the calcaneus. No acute fracture or dislocation SOFT TISSUES:Post procedural subcutaneous emphysema EFFUSION:None visible. OTHER: Posterior spinal XR/XR foot LT min 3V IMPRESSION: Postsurgical changes Electronically authenticated by: EVE WOLF Date: 01/01/2024 07:51
--- NOTE | 2023-12-29 09:50 | PM.ORONB ---
Brief Operative Note Date of procedure: 12/29/23 Pre-op diagnosis general: Left Achilles tear sequela, calcaneal spur, posterior ankle impingement with os trigonum Post-op diagnosis: same as pre-op Procedure: Procedures performed: Repair of left Achilles tendon, excision of calcaneal spur and's trigonum, application of short leg splint Indications for procedure: Patient is a 48-year-old female who has had left posterior ankle and Achilles pain since 2019 without history of injury. She relates that over the last 4 years her pain has been tolerable but for the last couple of months pain has been unbearable and has been under the treatment of Dr. Alejo. She initially was treated with NSAIDs such as diclofenac, gabapentin and Tylenol 3/ultram, physical therapy, immobilization in cam boot as well as RICE therapy. An MRI was obtained which demonstrated a large retrocalcaneal spur with intratendinous degeneration of the Achilles as well as increased signal noting impingement at the posterior process of the talus. She was referred to me for surgical consultation. A long discussion with the patient regarding potential risks and benefits of surgical correction specifically she is an active smoker and that the incision over the Achilles is at higher risk for delayed healing, dehiscence and infection. She was encouraged to cut back and stop smoking which would only benefit her healing potential. I discussed the postoperative course and answered all of her questions. Patient wished to undergo the above procedures Intraoperative findings: Achilles tendon thickened with scar and consistent with chronic partial tearing. Large calcaneal spur with normal bone quality given patient's age and gender. Posterior aspect of the ankle with significant amount of acute and chronic synovitis and impingement tissue. Accessory posterior talar process identified and removed. Procedure in detail: Patient was identified in preoperative holding by myself which time correct side and site were marked and consent was obtained. Regional anesthesia was performed by the anesthesia team and patient was brought back to the operating theater and preoperative antibiotics were started. Patient was intubated and general anesthesia was administered and the patient was flipped onto the table in a well-padded prone position with a thigh tourniquet. The left lower extremity was prepped and draped in usual sterile fashion. Formal timeout was performed and the left lower extremity was exsanguinated and tourniquet was inflated. A midline longitudinal incision over the Achilles tendon was performed and a combination of sharp and blunt dissection with all bleeders being coagulated allowed access to the Achilles tendon. The non-insertional and insertional areas of the Achilles tendon were completely exposed. There was significant thickening, scar and nonviable tissue noted in Achilles tendon. The Achilles tendon was detached from its insertion and inspected closely. Nonviable tendon was excised then all chronic tears and scar tissue removed. The incision was then extended distally to allow full exposure of the calcaneal spur. An osteotome was used to remove the spur as well as any excess bone and inflammatory tissue. A rongeur and rasp were then used to contour the retrocalcaneal to an anatomic appearance. The area was flushed with copious amounts of sterile saline and a wet lap was placed over the Achilles tendon. The deep crural fascia was incised exposing the posterior ankle joint. Combination of sharp and blunt dissection through Cager's triangle and adjacent to the flexor tendons was performed identifying the posterior aspect of the ankle and subtalar joints. The posterior lateral talar process was identified and removed with osteotome and rongeur's. All synovitis and impingement tissue was also excised. Four drill holes were placed into the posterior calcaneus from posterior to anterior and were placed approximately 2 cm apart in a square type fashion. Two 3.3 mm suture anchors were placed into the proximal two holes on the posterior aspect of the calcaneus. The sutures from the medial anchor were passed through the medial aspect of the Achilles while the sutures from the lateral anchor was passed through the lateral aspect of the tendon. The sutures were then passed through the tendon for repair. Then the needles were removed and passed the back table and 2 sutures from the medial anchor and 2 sutures from the lateral anchor were passed through a 4.5 mm knotless anchor. The foot was maximally plantarflexed and tension on the Achilles was pulled distally with the aid of an Allis clamp. The first 4.5 mm anchor was then secured to the distal medial drill hole in the calcaneus. Then the remaining 4 sutures were placed through an additional 4.5 mm anchor which was then placed into the distal lateral drill hole. The excess sutures were then tied and cut. I tested the stability of all anchors which was adequate. The foot was in 15 degrees of equinus. The surgical site was flushed thoroughly. The incision was then closed in layers and the tourniquet was deflated with a prompt hyperemic response. A dry sterile dressing was then placed followed by multiple layers of cast padding which was placed from the forefoot to the popliteal fossa. A layer of Gildardo wrap's were then placed followed by additional layers of cast padding. A posterior plaster splint was then placed on the plantar foot and posterior leg which was held in place by an additional layer of Gildardo wrap's. The foot was held in 15 degrees of plantarflexion while the splint dried. The patient was then flipped onto the gurney and extubated safely. Capillary refill was brisk to the left toes and she was transported to the recovery room with vital signs stable. Postoperative plan: Strict nonweightbearing in posterior splint for approximately 3 weeks or until incision is healed Advance diet as tolerated Elevate above level of heart Prescriptions were sent to her pharmacy via my office EMR Keep splint clean dry and intact Follow-up in 1 week Implants: Medline 3.3 suture anchors (x2) & 4.5 knotless anchors (x2) Anesthesia: regional and General-ET Surgeon: Den Jaimes Estimated blood loss (mL): 10 Tourniquet time (min): 46 Pathology: other (os trigonum ) Condition: stable Disposition: PACU
[2023-12-29 12:02] LABS: Glucometer 121 mg/dL (74-106)
== END 2023-12-29 12:33 | disposition home or self-care (01) ==
PROVIDERS: Anesthesiology; PCP Internal Medicine; Visit Provider Podiatrist Foot & Ankle Surgery
PROC: (CPT 01472; principal; 2023-12-29 08:30)
DX: M25.872 Other specified joint disorders, left ankle and foot (principal); S86.012S Strain of left Achilles tendon, sequela; M77.32 Calcaneal spur, left foot; F17.210 Nicotine dependence, cigarettes, uncomplicated; J45.909 Unspecified asthma, uncomplicated; K21.9 Gastro-esophageal reflux disease without esophagitis; M77.52 Other enthesopathy of left foot and ankle
CPT/HCPCS: 01472; 01480; 27650; 28118; 28120; 36415; 64445; 73630; 82948; 85025; 88304; C1713; J0690; J1100; J2250; J2371; J2405; J2704; J2795